=== PATIENT | male | born 1990 | race Caucasian/White ===

== ENCOUNTER 2018-02-15 18:16 | Inpatient (IN) | payer OTHER, SELFPAY ==
--- NOTE | 2018-02-15 19:39 | RAD REPORT ---
EXAM DESCRIPTION: Gretchen Anderson (2 Views)02/15/2018 7:19 pm CLINICAL HISTORY: Chest pain COMPARISON: None FINDINGS: Large right tension pneumothorax is present. The lungs appear clear of acute infiltrate. T he heart is normal size IMPRESSION: Large right tension pneumothorax. Exam was discussed with Olena in the emergency room 7:30 p.m. February 15, 2018
[2018-02-15 19:43] LABS: ALT/SGPT 24 U/L (12-78); AST/SGOT 14 U/L (15-37); Albumin 4.6 g/dL (3.4-5.0); Alkaline Phosphatase 68 U/L (45-117); BUN Blood Urea Nitrogen 13 mg/dL (7-18); Bicarbonate 24 mmol/L (21-32); Bilirubin Direct 0.1 mg/dL (0-0.2); Bilirubin Total 0.5 mg/dL (0.2-1.0); Glucose Level 93 mg/dL (74-106); Lipase 122 U/L (73-393); Protime INR 0.97; Sodium Level 139 mmol/L (136-145); Troponin (Emerg Dept Use Only) < 0.02 ng/mL (0.0-0.045)
[2018-02-15 19:45] LABS: Absolute Lymphocytes (CBC) 2.9 K/uL (0.7-4.9); Absolute Monocytes 0.9 K/uL (0.1-1.3); Absolute Neutrophil 9.4 K/uL (1.8-8.0); Basophils % 0.3 % (0-1.3); Eosinophils % 1.3 % (0-4.4); Hematocrit 50.3 % (39.6-49.0); Lymphocytes % 21.4 % (15.3-44.8); MCH 29.9 pg (27.0-35.0); MCV 90.9 fL (80-100); MPV 7.8 fL (7.6-11.3); Monocytes % 6.7 % (3.3-12.3); RBC Red Blood Cell Count 5.53 M/uL (4.33-5.43)
[2018-02-15] MEDS ORDERED: MIDAZOLAM HCL 2 MG/2 ML INJ ONE (19:52)
[2018-02-15] MEDS ORDERED: FENTANYL CITR 100 MCG/2 ML ONE ×2 (19:52→20:40)
--- NOTE | 2018-02-15 21:02 | RAD REPORT ---
EXAM DESCRIPTION: MERChest Single View02/15/2018 8:49 pm CLINICAL HISTORY: Chest pain COMPARISON: February 15, 2018 FINDINGS: A right chest tube has been inserted. The tip overlies the upper right hemithorax. Right l armand has re-expanded with minimal residual pneumothorax seen
--- NOTE | 2018-02-15 21:32 | ER ---
Nurse's Notes [facility] Name: David Anthony Age: 27 yrs Sex: Male : 1990 Arrival Date: 02/15/2018 Time: 18:19 Bed 2 Private MD: None, None Diagnosis: Right side chest pain;acute right side pneumothorax Presentation: 02/15 18:22 Presenting complaint: Patient states: continuous midsternal chest pain with right above sv elbow numbness since 1430. Worse with movement, c/o non-productive cough and pain with cough. Transition of care: patient was not received from another setting of care. Onset of symptoms was February 15, 2018 at 14:30. Care prior to arrival: None. 18:22 Method Of Arrival: Ambulatory sv 18:22 Acuity: RALPH 3 sv 19:19 Risk Assessment: Do you want to hurt yourself or someone else? Patient reports no mg2 desire to harm self or others. Initial Sepsis Screen: Does the patient meet any 2 criteria? No. Patient's initial sepsis screen is negative. Does the patient have a suspected source of infection? No. Patient's initial sepsis screen is negative. Triage Assessment: 18:22 General: Appears in no apparent distress. uncomfortable, Behavior is calm, cooperative, sv appropriate for age. Pain: Complains of pain in mid-sternal area Pain radiates to anterior aspect of left shoulder and left bicep Pain currently is 6 out of 10 on a pain scale. Neuro: Level of Consciousness is awake, alert, obeys commands, Oriented to person, place, time, situation, Moves all extremities. Full function Gait is steady, Speech is normal. Respiratory: Respiratory effort is even, unlabored, Respiratory pattern is regular, symmetrical. Historical: - Allergies: 18:34 No Known Allergies; sv - Home Meds: 18:34 None [Active]; sv - PMHx: 18:34 None; sv - PSHx: 18:34 Ureter; sv - Immunization history:: Flu vaccine is not up to date. - Social history:: Smoking status: Patient uses tobacco products, vape, Patient uses alcohol, on a daily basis. admits to "couple of beers" a day. - Ebola Screening: : No symptoms or risks identified at this time. - Family history:: not pertinent. - Hospitalizations: : No recent hospitalization is reported. Screenin:18 Abuse screen: Denies threats or abuse. Denies injuries from another. Nutritional mg2 screening: No deficits noted. Tuberculosis screening: No symptoms or risk factors identified. Fall Risk IV access (20 points). Assessment: 19:17 General: Appears in no apparent distress. comfortable, Behavior is calm, cooperative. mg2 Pain: Complains of pain in chest Pain began suddenly. Pain: Pain does not radiate. Pain currently is 6 out of 10 on a pain scale. Quality of pain is described as aching. Neuro: Level of Consciousness is awake, alert, obeys commands, Oriented to person, place, time, situation. Cardiovascular: Capillary refill < 3 seconds Patient's skin is warm and dry. Respiratory: Airway is patent Respiratory effort is even, unlabored, Respiratory pattern is regular, symmetrical. GI: No signs and/or symptoms were reported involving the gastrointestinal system. : No signs and/or symptoms were reported regarding the genitourinary system. EENT: No deficits noted. Derm: Skin is intact, is healthy with good turgor, Skin is pink, warm \\T\\ dry. normal. Musculoskeletal: No signs and/or symptoms reported regarding the musculoskeletal system. 22:10 Reassessment: Patient appears in no apparent distress at this time. Patient and/or tl2 family updated on plan of care and expected duration. Pain level reassessed. Patient is alert, oriented x 3, equal unlabored respirations, skin warm/dry/pink. Pt reports pain is returning, MD notified, new orders see MAR Patient states feeling better. 23:00 Reassessment: Patient appears in no apparent distress at this time. Patient and/or tl2 family updated on plan of care and expected duration. Pain level reassessed. Patient is alert, oriented x 3, equal unlabored respirations, skin warm/dry/pink. 02/16 00:00 Reassessment: Patient appears in no apparent distress at this time. Patient and/or tl2 family updated on plan of care and expected duration. Pain level reassessed. Patient is alert, oriented x 3, equal unlabored respirations, skin warm/dry/pink. 01:00 Reassessment: Patient appears in no apparent distress at this time. Patient and/or tl2 family updated on plan of care and expected duration. Pain level reassessed. Patient is alert, oriented x 3, equal unlabored respirations, skin warm/dry/pink. 02:26 Reassessment: Patient appears in no apparent distress at this time. Patient and/or tl2 family updated on plan of care and expected duration. Pain level reassessed. Patient is alert, oriented x 3, equal unlabored respirations, skin warm/dry/pink. Pt stable and ready for transport to floor. Vital Signs: 02/15 18:22 BP 156 / 98; Pulse 92; Resp 16; Temp 97.6; Pulse Ox 99% ; Weight 65.77 kg; Height 5 ft. sv 10 in. (177.80 cm); Pain 6/10; 20:00 BP 138 / 90; Pulse 91; Resp 18; Pulse Ox 100% on Non-rebreather mask; tl2 20:30 BP 126 / 95; Pulse 87; Resp 20; Pulse Ox 100% on Non-rebreather mask; tl2 21:09 BP 127 / 83; Pulse 85; Resp 19; Pulse Ox 100% on 2 lpm NC; tl2 21:46 BP 126 / 82; Pulse 80; Resp 18; Pulse Ox 100% on R/A; tl2 22:28 BP 130 / 74; Pulse 77; Resp 15; Pulse Ox 97% on R/A; tl2 11 00:05 BP 132 / 74; Pulse 75; Resp 14; Pulse Ox 99% on R/A; tl2 02:26 BP 131 / 79; Pulse 84; Resp 14; Pulse Ox 99% on 2 lpm NC; tl2 02/15 18:22 Body Mass Index 20.81 (65.77 kg, 177.80 cm) sv ED Course: 02/15 18:19 Patient arrived in ED. mr 18:20 None, None is Private Physician. mr 18:22 Arm band placed on Patient placed in an exam room, on a stretcher, on pulse oximetry. sv 18:28 Julius Payan MD is Attending Physician. wa 18:33 Triage completed. sv 18:36 EKG done, by ED staff, reviewed by Julius Payan MD. dh3 18:45 Michael Kumar, SOFIA is Primary Nurse. mg2 19:19 Chest Pa And Lat (2 Views) XRAY In Process Unspecified. EDMS 19:19 No provider procedures requiring assistance completed. Inserted saline lock: 20 gauge mg2 in left antecubital area, using aseptic technique. Blood collected. Patient maintains SpO2 saturation greater than 95% on room air. 19:19 Patient has correct armband on for positive identification. switchboard troubleshooter on. Pulse mg2 ox on. NIBP on. 20:18 Assist provider with chest tube insertion with 16 Fr. in right lateral Tray was set up. tl2 Attached to pleur-e-Baroc Pub. Chest tube inserted by Julius Payan MD Placement verified by CXR, return of air, Dressed with Vaseline gauze, foam tape, 4X4s, Patient tolerated well. 20:48 Chest Single View XRAY In Process Unspecified. EDMS 21:31 Navjot Schaeffer MD is Hospitalizing Provider. dc 02/16 02:26 Patient admitted, IV remains in place. tl2 Administered Medications: 02/15 20:00 Drug: fentaNYL (PF) 100 mcg Route: IVP; Site: left antecubital; tl2 20:30 Follow up: Response: No adverse reaction; Pain is unchanged, physician notified tl2 20:16 Drug: Versed 5 mg Route: IVP; Site: left antecubital; tl2 20:30 Follow up: Response: No adverse reaction; Pain is decreased tl2 20:34 Drug: fentaNYL (PF) 100 mcg Route: IVP; Site: left antecubital; tl2 21:00 Follow up: Response: No adverse reaction; Pain is decreased tl2 22:24 Drug: Dilaudid 1 mg Route: IVP; Site: left antecubital; tl2 23:00 Follow up: Response: No adverse reaction; Pain is decreased tl2 22:24 Drug: Zofran 4 mg Route: IVP; Site: left antecubital; tl2 23:00 Follow up: Response: No adverse reaction tl2 02/16 01:01 Drug: fentaNYL (PF) 50 mcg Route: IVP; Site: left antecubital; tl2 01:30 Follow up: Response: No adverse reaction; Pain is decreased tl2 Outcome: 02/15 21:32 Decision to Hospitalize by Provider. dc 02/16 02:25 Admitted to Med/surg accompanied by tech, family with patient, via stretcher, room 207, tl2 with chart, Report called to SOFIA Zhang Condition: stable Discharge instructions given to patient, family, Instructed on the need for admit, Demonstrated understanding of 02:31 Patient left the ED. tl2 Signatures: Dispatcher [employer] EDMercedes Bennett, RN RN [facility] mr Micki Bearden RN RN tl2 Angela Ferrari [facility] Julius Payan MD MD wa Gardose, Michele, RN RN mg2
--- NOTE | 2018-02-15 21:32 | EDPHYS ---
Physician Documentation [facility] Name: David Anthony Age: 27 yrs Sex: Male : 1990 Arrival Date: 02/15/2018 Time: 18:19 Bed 2 Private MD: None, None ED Physician Julius Payan HPI: 02/15 21:16 This 27 yrs old Male presents to ER via Ambulatory with complaints of Chest wa Pain, Numbness Of Arm. 21:16 The patient or guardian reports chest pain that is located primarily in the right side. wa The pain radiates to the right arm. Associated signs and symptoms: Pertinent positives: pain on inspiration. worse with walking around. pain also radiates into neck. denies nausea, sweating or dizziness. 21:17 The chest pain is described as sharp. Duration: The patient or guardian reports a wa single episode, that is still ongoing, and worsening. Modifying factors: The symptoms are alleviated by nothing. the symptoms are aggravated by movement, walking. Severity of pain: At its worst the pain was moderate in the emergency department the pain is actually worse. The patient has experienced a previous episode, approximately 2 years ago, resolved spontaneously. The patient has not recently seen a physician. states he vapes but was not smoking at the time pain began. . Historical: - Allergies: 18:34 No Known Allergies; sv - Home Meds: 18:34 None [Active]; sv - PMHx: 18:34 None; sv - PSHx: 18:34 Ureter; sv - Immunization history:: Flu vaccine is not up to date. - Social history:: Smoking status: Patient uses tobacco products, vape, Patient uses alcohol, on a daily basis. admits to "couple of beers" a day. - Ebola Screening: : No symptoms or risks identified at this time. - Family history:: not pertinent. - Hospitalizations: : No recent hospitalization is reported. ROS: 21:21 Constitutional: Negative for fever, chills, and weight loss, Eyes: Negative for injury, wa pain, redness, and discharge, ENT: Negative for injury, pain, and discharge, Neck: Negative for injury, pain, and swelling, Abdomen/GI: Negative for abdominal pain, nausea, vomiting, diarrhea, and constipation, Back: Negative for injury and pain, MS/Extremity: Negative for injury and deformity, Skin: Negative for injury, rash, and discoloration, Neuro: Negative for headache, weakness, numbness, tingling, and seizure, Psych: Negative for depression, anxiety, suicide ideation, homicidal ideation, and hallucinations. 21:21 Cardiovascular: Positive for chest pain, Negative for edema, orthopnea, palpitations, paroxysmal nocturnal dyspnea. 21:21 Respiratory: Positive for painful respirations, Negative for cough. Exam: 21:24 Constitutional: This is a well developed, well nourished patient who is awake, alert, wa and in no acute distress. Head/Face: Normocephalic, atraumatic. Eyes: Pupils equal round and reactive to light, extra-ocular motions intact. Lids and lashes normal. Conjunctiva and sclera are non-icteric and not injected. Cornea within normal limits. Periorbital areas with no swelling, redness, or edema. ENT: Nares patent. No nasal discharge, no septal abnormalities noted. Tympanic membranes are normal and external auditory canals are clear. Oropharynx with no redness, swelling, or masses, exudates, or evidence of obstruction, uvula midline. Mucous membranes moist. Neck: Trachea midline, no thyromegaly or masses palpated, and no cervical lymphadenopathy. Supple, full range of motion without nuchal rigidity, or vertebral point tenderness. No Meningismus. Chest/axilla: Normal chest wall appearance and motion. Nontender with no deformity. No lesions are appreciated. Cardiovascular: Regular rate and rhythm with a normal S1 and S2. No gallops, murmurs, or rubs. Normal PMI, no JVD. No pulse deficits. Respiratory: Lungs have equal breath sounds bilaterally, clear to auscultation and percussion. No rales, rhonchi or wheezes noted. No increased work of breathing, no retractions or nasal flaring. Abdomen/GI: Soft, non-tender, with normal bowel sounds. No distension or tympany. No guarding or rebound. No evidence of tenderness throughout. Back: No spinal tenderness. No costovertebral tenderness. Full range of motion. Skin: Warm, dry with normal turgor. Normal color with no rashes, no lesions, and no evidence of cellulitis. MS/ Extremity: Pulses equal, no cyanosis. Neurovascular intact. Full, normal range of motion. Neuro: Awake and alert, GCS 15, oriented to person, place, time, and situation. Cranial nerves II-XII grossly intact. Motor strength 5/5 in all extremities. Sensory grossly intact. Cerebellar exam normal. Normal gait. Vital Signs: 18:22 BP 156 / 98; Pulse 92; Resp 16; Temp 97.6; Pulse Ox 99% ; Weight 65.77 kg; Height 5 ft. sv 10 in. (177.80 cm); Pain 6/10; 20:00 BP 138 / 90; Pulse 91; Resp 18; Pulse Ox 100% on Non-rebreather mask; tl2 20:30 BP 126 / 95; Pulse 87; Resp 20; Pulse Ox 100% on Non-rebreather mask; tl2 21:09 BP 127 / 83; Pulse 85; Resp 19; Pulse Ox 100% on 2 lpm NC; tl2 21:46 BP 126 / 82; Pulse 80; Resp 18; Pulse Ox 100% on R/A; tl2 22:28 BP 130 / 74; Pulse 77; Resp 15; Pulse Ox 97% on R/A; tl2 02/16 00:05 BP 132 / 74; Pulse 75; Resp 14; Pulse Ox 99% on R/A; tl2 02:26 BP 131 / 79; Pulse 84; Resp 14; Pulse Ox 99% on 2 lpm NC; tl2 02/15 18:22 Body Mass Index 20.81 (65.77 kg, 177.80 cm) sv Procedures: 02/15 21:28 Chest tube insertion: the site was prepped in sterile fashion, chlorhexadine, Tube wa size: a 20 libyan chest tube was inserted, introduced in right in the mid-axillary, to pleur-e-vac, dressed with vaseline gauze, silk tape, 4x4s, the patient tolerated the procedure pain control and anxiolysis achieved with a bolus of fentanyl and versed. MDM: 18:28 Patient medically screened. wa 21:24 Differential diagnosis: acute pericarditis, coronary artery disease chest wall pain, wa costochondritis, gastritis, pancreatitis, pericarditis, pleurisy, pneumonia, pneumothorax, pulmonary embolus, thoracic aortic disection, unstable angina. 21:25 Data reviewed: vital signs, nurses notes, lab test result(s), EKG, radiologic studies. wa Test interpretation: by ED physician or midlevel provider: labs noted only for leukocytosis. nml troponin. nml lipase. CXR: large Right side pneumothorax pushing trachea mildly to the left. 21:26 Test interpretation: by ED physician or midlevel provider: EKG: HR 82. Rightward axis. wa otherwise nml EKG. d-dimer nml. . Response to treatment: the patient's symptoms have markedly improved after treatment. Physician consultation: Navjot Schaeffer MD. Admission orders: after a detailed discussion of the patient's condition and case, the admit orders are written by me. 21:30 Test interpretation: by ED physician or midlevel provider: post-chest tube chest x-ray: nv R lung re-expansion noted. mild residual pneumothorax. ED course: accepted by Dr. Schaeffer for admit. advised CT chest in AM to r/o bleb. 02/15 18:58 Order name: Basic Metabolic Panel nv 02/15 18:58 Order name: CBC with Diff; Complete Time: 21:24 nv 02/15 18:58 Order name: LFT's nv 02/15 18:58 Order name: PT-INR; Complete Time: 21:25 nv 02/15 18:58 Order name: Troponin (emerg Dept Use Only); Complete Time: 21:25 nv 02/15 18:58 Order name: D-Dimer; Complete Time: 21:25 nv 02/15 18:58 Order name: Chest Pa And Lat (2 Views) XRAY nv 02/15 18:58 Order name: Lipase; Complete Time: 21:25 nv 02/15 18:59 Order name: Basic Metabolic Panel; Complete Time: 21:24 [facility] 02/15 18:59 Order name: Liver (Hepatic) Function; Complete Time: 21:24 [facility] 02/15 23:14 Order name: Basic Metabolic Panel [facility] 02/15 23:14 Order name: Basic Metabolic Panel [facility] 02/15 23:14 Order name: CBC with Automated Diff [facility] 02/15 23:14 Order name: CBC with Automated Diff [facility] 02/15 18:31 Order name: EKG; Complete Time: 18:31 sv 02/15 18:31 Order name: EKG - Nurse/Tech; Complete Time: 18:36 sv 02/15 18:58 Order name: Cardiac monitoring; Complete Time: 19:14 nv 02/15 18:58 Order name: IV Saline Lock; Complete Time: 19:14 nv 02/15 18:58 Order name: Labs collected and sent; Complete Time: 19:14 nv 02/15 18:58 Order name: O2 Sat Monitoring; Complete Time: 19:14 nv 02/15 20:38 Order name: Chest Single View XRAY; Complete Time: 21:12 nv 02/15 23:14 Order name: Thorax W/ Con EDMS 02/15 23:14 Order name: Regular EDMS Administered Medications: 20:00 Drug: fentaNYL (PF) 100 mcg Route: IVP; Site: left antecubital; tl2 20:30 Follow up: Response: No adverse reaction; Pain is unchanged, physician notified tl2 20:16 Drug: Versed 5 mg Route: IVP; Site: left antecubital; tl2 20:30 Follow up: Response: No adverse reaction; Pain is decreased tl2 20:34 Drug: fentaNYL (PF) 100 mcg Route: IVP; Site: left antecubital; tl2 21:00 Follow up: Response: No adverse reaction; Pain is decreased tl2 22:24 Drug: Dilaudid 1 mg Route: IVP; Site: left antecubital; tl2 23:00 Follow up: Response: No adverse reaction; Pain is decreased tl2 22:24 Drug: Zofran 4 mg Route: IVP; Site: left antecubital; tl2 23:00 Follow up: Response: No adverse reaction tl2 02/16 01:01 Drug: fentaNYL (PF) 50 mcg Route: IVP; Site: left antecubital; tl2 01:30 Follow up: Response: No adverse reaction; Pain is decreased tl2 Disposition: 02/15/18 21:32 Hospitalization ordered by Navjot Schaeffer for Inpatient Admission. Preliminary diagnosis are Right side chest pain, acute right side pneumothorax. - Bed requested for Telemetry/MedSurg (Inpatient). - Status is Inpatient Admission. tl2 - Condition is Stable. - Problem is new. - Symptoms have improved. UTI on Admission? No Signatures: Dispatcher [employer] EDChina Mitchell RN RN kl Verde, Stephanie, RN RN sv Knox, Taylor, RN RN tl2 Julius Payan MD MD nv Corrections: (The following items were deleted from the chart) 00:42 02/15 21:32 Hospitalization Ordered by Navjot Schaeffer MD for Inpatient Admission. kl Preliminary diagnosis is Right side chest pain; acute right side pneumothorax. Bed requested for Telemetry/MedSurg (Inpatient). Status is Inpatient Admission. Condition is Stable. Problem is new. Symptoms have improved. UTI on Admission? No. wa 02/16 02:31 00:42 02/15/2018 21:32 Hospitalization Ordered by Navjot Schaeffer MD for Inpatient tl2 Admission. Preliminary diagnosis is Right side chest pain; acute right side pneumothorax. Bed requested for Telemetry/MedSurg (Inpatient). Status is Inpatient Admission. Condition is Stable. Problem is new. Symptoms have improved. UTI on Admission? No. kl
[2018-02-15] MEDS ORDERED: ONDANSETRON 4 MG/2 ML VIAL ONE (22:18)
[2018-02-15] MEDS ORDERED: HYDROMORPHONE HCL 1 MG/ML INJ ONE (22:18)
[2018-02-15] MEDS ORDERED: ACETAMINOPHEN 500 MG TAB PO PRN (23:08)
[2018-02-15] MEDS ORDERED: ONDANSETRON 4 MG/2 ML VIAL IV PRN (23:08)
[2018-02-16] MEDS: FENTANYL CITR 100 MCG/2 ML IV PRN ×3 (04:30→17:01)
[2018-02-16 06:09] LABS: Absolute Lymphocytes (CBC) 1.8 K/uL (0.7-4.9); Absolute Monocytes 0.9 K/uL (0.1-1.3); Absolute Neutrophil 10.1 K/uL (1.8-8.0); Basophils % 0.1 % (0-1.3); Eosinophils % 0.2 % (0-4.4); Hematocrit 43.9 % (39.6-49.0); Lymphocytes % 14.2 % (15.3-44.8); MCH 30.7 pg (27.0-35.0); MPV 7.8 fL (7.6-11.3); Monocytes % 7.1 % (3.3-12.3); RBC Red Blood Cell Count 4.93 M/uL (4.33-5.43)
[2018-02-16 06:36] LABS: BUN Blood Urea Nitrogen 12 mg/dL (7-18); Bicarbonate 27 mmol/L (21-32); Glucose Level 98 mg/dL (74-106); Potassium 4.3 mmol/L (3.5-5.1); Sodium Level 136 mmol/L (136-145)
--- NOTE | 2018-02-16 06:37 | EKG ---
Test Date: 2018-02-15 Test Time: 18:35:40 Sandblast Operator: DONNA MEASUREMENT RESULTS: Intervals: Rate: 82 NH: 150 QRSD: 94 QT: 332 QTc: 387 [place]: P: 88 NH: 150 QRS: 91 T: 88 INTERPRETIVE STATEMENTS: Normal sinus rhythm Rightward axis Borderline ECG No previous ECG available for comparison Electronically Signed On 02-16-18 06:36:12 CDT by Sameer Nolen
[2018-02-16] MEDS ORDERED: INFLUENZA VACCINE (for 3y+) 0.5 ML DOSE IMVAC ONE (08:00)
[2018-02-16] MEDS: HYDROCODONE/APAP 5/325 MG TAB PO PRN ×3 (08:51→19:49)
--- NOTE | 2018-02-16 09:58 | RAD REPORT ---
EXAM DESCRIPTION: CT - Thorax W/ Con CLINICAL HISTORY: Chest pain right pneumothorax COMPARISON: Chest Single View dated 02/15/2018; Chest Pa And Lat (2 Views) dated 02/15/2018 FINDINGS: A large right-sided pneumothorax is present. A right chest tube is in place within the ple ural space directed cephalad. Atelectasis is noted of the right lower lobe. No cardiomediastinal shif t is seen to the left. The left lung is clear. No axillary, mediastinal or hilar adenopathy. No concerning bony finding. No gross upper abdominal finding. All CT scans are performed using dose optimization technique as appropriate and may include automated exposure control or mA/KV adjustment according to patient size. IMPRESSION: Right-sided chest tube is in place directed cephalad in the right pleural space. There c ontinues to be a large right pneumothorax present, however cardiomediastinal shift to the left is not seen. Findings were discussed Dr. Schaeffer 9:53 a.m. 02/16/2018 by telephone.
--- NOTE | 2018-02-16 13:02 | P.DS ---
Admission Date: 02/15/18 Discharge Date: 02/16/18 Disposition: TRANSFER TO [facility] Discharge Condition: GOOD Reason for Admission: Spontaneous pneumothorax Consultations: Surgery-Dr. Schaeffer Procedures: Chest tube placement Medical problem list: Right-sided chest pain secondary to spontaneous right-sided large pneumothorax status post chest tube placement with persistent air leak Tobacco use Alcohol use Brief History of Present Illness: 27-year-old male present emergency room with right-sided chest pain. Patient found to have a spontaneous pneumothorax. Chest tube was placed. Patient admitted for further evaluation and monitoring. Vital signs stable. Patient afebrile. Respirations unremarkable. CT scan: COMPARISON: Chest Single View dated 02/15/2018; Chest Pa And Lat (2 Views) dated 02/15/2018 FINDINGS: A large right-sided pneumothorax is present. A right chest tube is in place within the pleural space directed cephalad. Atelectasis is noted of the right lower lobe. No cardiomediastinal shift is seen to the left. The left lung is clear. No axillary, mediastinal or hilar adenopathy. No concerning bony finding. No gross upper abdominal finding. All CT scans are performed using dose optimization technique as appropriate and may include automated exposure control or mA/KV adjustment according to patient size. IMPRESSION: Right-sided chest tube is in place directed cephalad in the right pleural space. There continues to be a large right pneumothorax present, however cardiomediastinal shift to the left is not seen. Medical history: Unremarkable Surgical history: Left-sided ureteral surgery due to blockage Family history: Mother with history of pancreatic cancer Father with history of colon cancer Tobacco history: Patient currently vapes Alcohol history: Patient drinks socially Caffeine history: Regular use Social history: Patient has a fiancee. He has no children. He works construction. Hospital Course: Patient found to have right-sided spontaneous pneumothorax. Chest tube was placed. Patient evaluated and monitored by surgery. Patient continued to have large right pneumothorax with persistent air leak. Surgery recommended the patient to be transferred for thoracic surgery evaluation for possible VATS procedure. Case discussed at length with thoracic surgery. Patient accepted. Patient will be transferred to [facility] for further evaluation and treatment. Review of systems: HEENT: Unremarkable Neck: Unremarkable Pulmonary: As above Cardiac: As above GI: No nausea, vomiting, diarrhea or constipation. No abdominal pain noted. Urological: Unremarkable Neurological: Unremarkable PSYC: Unremarkable Vital Signs/Physical Exam: Temp Pulse Resp BP Pulse Ox 97.9 F 72 18 130/62 98 02/16/18 12:00 02/16/18 12:00 02/16/18 12:00 02/16/18 12:00 02/16/18 12:00 General: Alert, In no apparent distress, Oriented x3, Cooperative HEENT: Atraumatic, Mucous membr. moist/pink Neck: Supple Respiratory: Other (Right chest tube in place) Cardiovascular: Normal pulses, Regular rate/rhythm Gastrointestinal: Normal bowel sounds, Soft and benign, Non-distended, No tenderness, No masses, No rebound, No guarding Musculoskeletal: No erythema, No tenderness, No warmth Integumentary: No tenderness/swelling, No erythema, No warmth, No cyanosis Neurological: Normal speech, Normal strength at 5/5 x4 extr, Normal tone, Normal affect Laboratory Data at Discharge: WBC 12.9 K/uL (4.3-10.9) H 02/16/18 05:17 Hgb 15.1 g/dL (13.6-17.9) 02/16/18 05:17 Hct 43.9 % (39.6-49.0) 02/16/18 05:17 Plt Count 211 K/uL (152-406) 02/16/18 05:17 PT 11.4 SECONDS (9.5-12.5) 02/15/18 19:15 INR 0.97 02/15/18 19:15 Sodium 136 mmol/L (136-145) 02/16/18 05:17 Potassium 4.3 mmol/L (3.5-5.1) 02/16/18 05:17 BUN 12 mg/dL (7-18) 02/16/18 05:17 Creatinine 1.00 mg/dL (0.55-1.3) 02/16/18 05:17 Glucose 98 mg/dL (74-106) 02/16/18 05:17 Total Bilirubin 0.5 mg/dL (0.2-1.0) 02/15/18 19:15 AST 14 U/L (15-37) L 02/15/18 19:15 ALT 24 U/L (12-78) 02/15/18 19:15 Alkaline Phosphatase 68 U/L (45-117) 02/15/18 19:15 Lipase 122 U/L (73-393) 02/15/18 19:15 Home Medications: NK [No Home Meds] 02/16/18 Patient Discharge Instructions: Patient to be transferred to [facility] for thoracic surgery evaluation and possible VATS procedure. Patient with spontaneous right-sided large pneumothorax status post chest tube placement complicated with persistent air leak. Diet: AHA Activity: Fall precautions Time spent managing pt's care (in minutes): 55
--- NOTE | 2018-02-16 17:43 | CON ---
History Of Present Illness: This is the case of a 27 years old patient, comes to the ER complaining of chest discomfort. The patient was initially seen by the ER physician who diagnosed him with a pne umothorax and put a chest tube on the patient. When the pneumothorax resolved, then he decided to ad holden the patient to the hospitalist and a surgical consult for evaluation and chest tube removal event uajosee. The patient says that he had an episode like that about 2 years ago and resolved on its own. The patient is still smoking. He has no primary doctor around and other than that, he does not comp george of any symptoms. Allergies: NONE. Medications: None. Medical Problems: Recurrent pneumothorax. Past Surgical History: Some urological surgery, does not have details. Social Habits: The patient chews tobacco, uses vape and drinks beers every now and then. Review of Systems: Constitutional: Denies any fever or chills. Denies any trauma. Denies traveling out of the country . Denies any high altitude. Respiratory: Denies any coughing or sneezing. Currently denies any shortness of breath. Gastrointestinal: Denies any nausea, vomiting, or abdominal pain. Extremities: Denies any weakness. Physical Examination: General: The patient is awake and alert. HEENT: Pupils are equal and reactive, anicteric. Neck: Supple. Chest: Clear. Bilateral breath sounds, although diminished on the right side. The chest tube is in place. It was examined from the water seal device up to the chest. Dressings were changed. Since there is still persistent pneumothorax and we did not see any leakage in the connections, chest tube is all the way in with no side ports outside of the chest cavity. The tube looks viable, intact with fluid on it tidaling with air bubbles in the collection chamber consistent with an air leak. The pa tient has bilateral breath sounds. No bleeding. No crepitus. Abdomen: Soft and depressible. Nontender, nondistended. Bowel sounds positive. Extremities: Good capillary refill. Neuro: Cranial nerves 2 through 12 grossly within normal limits. Rectal: Deferred. Diagnostic Data: CAT scan of the chest was reviewed with the radiologist, we were present when they were getting the films reading. We have a chest tube, it looks to be in place with no kink, no side ports outside, there is still large pneumothorax present and that is consistent with air leak we see on the chest tube area collection chamber. Some atelectasis is noted already on the right side. No cardiomediastinal shift to the left and the left lung is clear. Assessment: It is a 27 years old patient, with recurrent pneumothorax. A chest tube was placed by [facility] staff last night, looks with no leakage, but still have persistent pneumothorax with an air gabino k seen on the chamber. I do not see the hospitalist admission here as was described to me, so I will initiate a transfer myself to Thoracic Surgery. I explained to the person that there is a large air leak combined with recurrent may need evaluation by thoracic surgeon for either surgery or any other indicated procedure to trying to stop the leaks from that area. They are fully agree with that. Luis Antonio verdin also want to go to [facility] to the Thoracic Surgery, so I explained to supervisors and staff on the floor to initiate a transfer to a thoracic surgeon when he needs that higher level of care. In the meantime, we are going to keep the chest tube there, we are going to continue with serial chest exami nations. Right now, he has no shortness of breath and the chest tube is tidaling. We are going to d iscuss the area with the thoracic surgeon too in case the patient needs an additional chest tube or e nestor repositioning of it, either thing is necessary, but I believe transfer should be done as soon as possible. EZIO/ENRIQUE Voice ID: [id number] Report ID: [id number]
== END 2018-02-16 23:26 | disposition short-term general hospital (02) | DRG 201 ==
LOC: ER 18:16 → ERHOLD 23:57 → OBSVTOIN 23:57 → 2ND 02-16 01:58
PROVIDERS: ADMIT Surgery; ATTEND Surgery
PROC: 0W9930Z Drainage of Right Pleural Cavity with Drainage Device, Percutaneous Approach (ICD-10-PCS; principal; 2018-02-15)
DX: J93.83 Other pneumothorax (principal); J93.82 Other air leak; F17.210 Nicotine dependence, cigarettes, uncomplicated; Z23 Encounter for immunization
CPT/HCPCS: 36415; 71045; 71046; 71260; 80048; 80076; 83690; 84484; 85025; 85379; 85610; 93005; 96374; 96375; 99291; G0008; G0378; J1170; J2250; J2405; J3010; Q2035; Q9967

== ENCOUNTER 2018-04-10 19:21 | Emergency (ER) | payer SELFPAY ==
--- OUTSIDE RECORDS SUMMARY | 2018-04-10 19:25 | XMS REPORT | Clinical Summary ---
:1990 Author Organization [facility] Address [address] [place] [address] Care Team Providers Name Role Phone Pcp, No Primary Care Provider Unavailable Allergies No Known Allergies Medications Medication Sig Dispensed Refills Start Date End Date Status gabapentin Take 1 capsule 90 capsule 11 02/24/2018 Active (NEURONTIN) 300 MG (300 mg total) capsule by mouth 3 (three) times daily. traMADol (ULTRAM) 50 Take 2 tablets 30 tablet 0 02/24/2018 03/06/2018 mg tablet (100 mg total) by mouth every 6 (six) hours as needed for up to 10 days. Max Daily Amount: 400 mg Active Problems Problem Noted Date Pneumothorax, right 02/17/2018 Encounters Date Type Specialty Care Team Description 02/20/2018 Anesthesia Event Marilin Gomez MD 02/20/2018 Surgery Mariusz Leo ROBOTIC THORACOSCOPY MD [place] (VATS),WEDGE RESECTION W/ OR W/OUT LYMPHADENECTOMY 02/17/2018 - Hospital Encounter Intensive Care Macho Pintoli, Pneumothorax , right; 02/24/2018 Acute respiratory insufficiency, postoperative 02/17/2018 Travel after 04/09/2017 Family History Medical History Relation Name Comments Arthritis Father Cancer Father Alcohol abuse Mother Cancer Mother Asthma Sister Relation Name Status Comments Father Mother Sister Social History Tobacco Use Types Packs/Day Years Used Date Current Some Day Smoker 1 Quit: 12/18/2017 Smokeless Tobacco: Current User Tobacco Cessation: Ready to Quit: Yes; Counseling Given: No Comments: currently vaping to transition from cigarettes Alcohol Use Drinks/Week oz/Week Comments Yes 14 Cans of beer 8.4 Sex Assigned at Date Recorded Not on file Job Start Date Occupation Industry Not on file Not on file Not on file Travel History Travel Start Travel End No recent travel history available. Last Filed Vital Signs Vital Sign Reading Time Taken Blood Pressure 136/75 02/24/2018 10:20 AM [facility]ER Pulse 81 02/24/2018 10:20 AM [facility]ER Temperature 36.7 C (98 F) 02/24/2018 7:57 AM [facility] M[facility]ER Respiratory Rate 18 02/24/2018 10:20 AM [facility]ER Oxygen Saturation 96% 02/24/2018 10:20 AM [facility]ER Inhaled Oxygen Concentration 40% 02/21/2018 8:00 AM [facility]ER Weight 61.3 kg (135 lb 2.3 oz) 02/24/2018 10:00 AM [facility] Height 177.8 cm (5' 10") 02/17/2018 12:42 AM CDT Body Mass Index 19.39 02/24/2018 10:00 AM [facility]ER Plan of Treatment Not on file Procedures Procedure Name Priority Date/Time Associated Diagnosis Comments RHYTHM STRIP - SCAN 03/01/2018 9:10 AM [facility]ER XR CHEST 1 VIEW Routine 02/24/2018 10:32 Results for this PORTABLE/BEDSIDE AM [facility] procedure are in the results section. CBC W/PLT COUNT & Routine 02/24/2018 4:52 Results for this AUTO DIFFERENTIAL AM [facility] procedure are in the results section. MAGNESIUM Routine 02/24/2018 4:52 Results for this AM [facility] procedure are in the results section. CBC W/PLT COUNT & Routine 02/24/2018 4:52 Results for this AUTO DIFFERENTIAL AM [facility] procedure are in the results section. BASIC METABOLIC Routine 02/24/2018 4:52 Results for this PANEL (7) AM [facility] procedure are in the results section. XR CHEST 1 VIEW Routine 02/24/2018 3:15 Results for this PORTABLE/BEDSIDE AM [facility] procedure are in the results section. XR CHEST 1 VIEW Routine 02/23/2018 12:48 Results for this PORTABLE/BEDSIDE PM [facility] procedure are in the results section. CBC W/PLT COUNT & Routine 02/23/2018 3:39 Results for this AUTO DIFFERENTIAL AM [facility] procedure are in the results section. MAGNESIUM Routine 02/23/2018 3:39 Results for this AM [facility] procedure are in the results section. CBC W/PLT COUNT & Routine 02/23/2018 3:39 Results for this AUTO DIFFERENTIAL AM [facility] procedure are in the results section. BASIC METABOLIC Routine 02/23/2018 3:39 Results for this PANEL (7) AM [facility] procedure are in the results section. XR CHEST 1 VIEW Routine 02/23/2018 3:17 Results for this PORTABLE/BEDSIDE AM [facility] procedure are in the results section. XR CHEST 1 VIEW Routine 02/22/2018 5:40 Results for this PORTABLE/BEDSIDE AM [facility] procedure are in the results section. CBC W/PLT COUNT & Routine 02/22/2018 4:18 Results for this AUTO DIFFERENTIAL AM [facility] procedure are in the results section. MAGNESIUM Routine 02/22/2018 4:18 Results for this AM [facility] procedure are in the results section. CBC W/PLT COUNT & Routine 02/22/2018 4:18 Results for this AUTO DIFFERENTIAL AM [facility] procedure are in the results section. BASIC METABOLIC Routine 02/22/2018 4:18 Results for this PANEL (7) AM [facility] procedure are in the results section. TRANSFUSION SERVICE 02/21/2018 6:02 REPORT - SCAN PM [facility] XR CHEST 1 VIEW Routine 02/21/2018 3:41 Results for this PORTABLE/BEDSIDE AM [facility] procedure are in the results section. CBC W/PLT COUNT & Routine 02/21/2018 3:18 Results for this AUTO DIFFERENTIAL AM [facility] procedure are in the results section. BLOOD GAS, ARTERIAL Routine 02/21/2018 3:18 Results for this AM [facility] procedure are in the results section. MAGNESIUM Routine 02/21/2018 3:18 Results for this AM [facility] procedure are in the results section. BASIC METABOLIC Routine 02/21/2018 3:18 Results for this PANEL (7) AM [facility] procedure are in the results section. CBC W/PLT COUNT & Routine 02/21/2018 3:18 Results for this AUTO DIFFERENTIAL AM [facility] procedure are in the results section. MAGNESIUM STAT 02/20/2018 10:08 Results for this PM [facility] procedure are in the results section. BASIC METABOLIC STAT 02/20/2018 10:08 Results for this PANEL (7) PM [facility] procedure are in the results section. CBC (HEMOGRAM ONLY) STAT 02/20/2018 10:08 Results for this PM [facility] procedure are in the results section. XR CHEST 1 VIEW Routine 02/20/2018 9:36 Results for this PORTABLE/BEDSIDE PM [facility] procedure are in the results section. TISSUE EXAM AP Routine 02/20/2018 7:45 Results for this PM [facility] procedure are in the results section. HGB/HCT (H&H) - STAT STAT 02/20/2018 7:15 Results for this LAB PM [facility] procedure are in the results section. GLUCOSE-STAT LAB STAT 02/20/2018 7:15 Results for this PM [facility] procedure are in the results section. POTASSIUM-STAT LAB STAT 02/20/2018 7:15 Results for this PM [facility] procedure are in the results section. SODIUM NA-STAT LAB STAT 02/20/2018 7:15 Results for this PM [facility] procedure are in the results section. BLOOD GAS, ARTERIAL STAT 02/20/2018 7:15 Results for this PM [facility] procedure are in the results section. CALCIUM, IONIZED STAT 02/20/2018 7:15 Results for this PM [facility] procedure are in the results section. RRL CRITICAL LABS STAT 02/20/2018 7:15 Results for this (ABG,NA,K,H&H,GLUCOS PM [facility] procedure are in E) the results section. THORACOTOMY,PLEURECT 02/20/2018 5:00 Spontaneous PIERRE PM [facility]ER pneumothorax Special Needs REQ TF ROBOTIC THORACOSCOPY 02/20/2018 5:00 PM [facility]ER Spontaneous pneumothorax (VATS),WEDGE RESECTION W/ OR W/OUT LYMPHADENECTOMY Special Needs REQ TF CBC W/PLT COUNT & AUTO Routine 02/20/2018 3:29 AM [facility]UR MIXER Results for this DIFFERENTIAL procedure are in the results section. TYPE AND SCREEN, AUTOMATED Routine 02/20/2018 3:29 AM [facility]ER PT/APTT Routine 02/20/2018 3:29 AM [facility]ER MAGNESIUM Routine 02/20/2018 3:29 AM [facility]ER BASIC METABOLIC PANEL (7) Routine 02/20/2018 3:29 AM [facility]ER CBC W/PLT COUNT & AUTO Routine 02/20/2018 3:29 AM [facility]ER Results for this DIFFERENTIAL procedure are in the results section. XR CHEST 1 VIEW Routine 02/20/2018 3:22 AM [facility]ER Results for this PORTABLE/BEDSIDE procedure are in the results section. XR CHEST 1 VIEW Routine 02/19/2018 2:21 AM [facility]ER Results for this PORTABLE/BEDSIDE procedure are in the results section. POCT-GLUCOSE METER Routine 02/18/2018 10:31 PM CDT TRANSFUSION SERVICE REPORT - 02/18/2018 5:51 PM CDT SCAN CBC W/PLT COUNT & AUTO Routine 02/18/2018 4:23 AM CDT Results for this DIFFERENTIAL procedure are in the results section. MAGNESIUM Routine 02/18/2018 4:23 AM CDT BASIC METABOLIC PANEL (7) Routine 02/18/2018 4:23 AM CDT CBC W/PLT COUNT & AUTO Routine 02/18/2018 4:23 AM CDT Results for this DIFFERENTIAL procedure are in the results section. XR CHEST 1 VIEW Routine 02/18/2018 4:11 AM CDT Results for this PORTABLE/BEDSIDE procedure are in the results section. XR CHEST 1 VIEW Routine 02/17/2018 12:29 PM CDT Results for this PORTABLE/BEDSIDE procedure are in the results section. CBC W/PLT COUNT & AUTO Routine 02/17/2018 4:21 AM CDT Results for this DIFFERENTIAL procedure are in the results section. TYPE AND SCREEN, AUTOMATED Routine 02/17/2018 4:21 AM CDT PT/APTT Routine 02/17/2018 4:21 AM CDT CBC W/PLT COUNT & AUTO Routine 02/17/2018 4:21 AM CDT Results for this DIFFERENTIAL procedure are in the results section. COMPREHENSIVE METABOLIC Routine 02/17/2018 4:21 AM CDT Results for this PANEL procedure are in the results section. MAGNESIUM Routine 02/17/2018 4:21 AM CDT ECG 12-LEAD Routine 02/17/2018 2:29 AM CDT XR CHEST 1 VIEW STAT 02/17/2018 1:13 AM CDT Results for this PORTABLE/BEDSIDE procedure are in the results section. after 04/09/2017 Results RHYTHM STRIP - SCAN (03/01/2018 9:10 AM F[facility]ER) Narrative Performed At XR chest 1 view portable / bedside (02/24/2018 10:32 AM [facility] MIXER)Only the most recent of12 resultswithin the time period is included. Narrative Performed At FINAL REPORT [facility] CLINICAL HISTORY: CT removal TECHNIQUE: 1 view of the chest. COMPARISON: 02/24/2018 IMPRESSION: The right chest tube has been removed. There is a small residual pneumothorax with air tracking along the previous chest tube tract. Patchy right lower lung opacities are unchanged with a small right pleural effusion. The cardiomediastinal silhouette is within normal limits for size. Signed: Chrissie Oewns MD Report Verified Date/Time:02/24/2018 12:27:55 Reading Location: [facility] Radiology Reading Room Procedure Note Interface, External Ris In - 02/24/2018 12:30 PM [facility]ER FINAL REPORT CLINICAL HISTORY: CT removal TECHNIQUE: 1 view of the chest. COMPARISON: 02/24/2018 IMPRESSION: The right chest tube has been removed. There is a small residual pneumothorax with air tracking along the previous chest tube tract. Patchy right lower lung opacities are unchanged with a small right pleural effusion. The cardiomediastinal silhouette is within normal limits for size. Signed: Chrissie Owens MD Report Verified Date/Time: 02/24/2018 12:27:55 Reading Location: [facility] Radiology Reading Room Performing Organization Address City/State/Zipcode Phone Number [facility] CBC with platelet count + automated diff (02/24/2018 4:52 AM FUR MIXER)Only the most recent of7 resultswithin the time period is included. WBC 6.7 3.5 - 10.5 K/L [facility] RBC 4.41 (L) 4.63 - 6.08 M/L [facility] Hemoglobin 13.2 (L) 13.7 - 17.5 GM/DL [facility] Hematocrit 40.2 40.1 - 51.0 % [facility] MCV 91.2 79.0 - 92.2 fL [facility] MCH 29.9 25.7 - 32.2 pg [facility] MCHC 32.8 32.3 - 36.5 GM/DL [facility] RDW 11.9 11.6 - 14.4 % [facility] Platelets 203 150 - 450 K/CU MM [facility] MPV 8.5 (L) 9.4 - 12.4 fL [facility] nRBC 0 0 - 0 /100 WBC [facility] % Neutros 59 % [facility] % Lymphs 23 % [facility] % Monos 11 % [facility] % Eos 6 % [facility] % Baso 1 % [facility] # Neutros 3.96 1.78 - 5.38 K/L [facility] # Lymphs 1.51 1.32 - 3.57 K/L [facility] # Monos 0.75 0.30 - 0.82 K/L [facility] # Eos 0.42 0.04 - 0.54 K/L [facility] # Baso 0.04 0.01 - 0.08 K/L [facility] Immature Granulocytes-Relative 0 0 - 1 % [facility] Specimen Blood - Arm, Left Performing Organization Address City/[facility]/Zipcode Phone Number [address] [address] [phone] CENTER Magnesium (02/24/2018 4:52 AM [facility]ER)Only the most recent of8 resultswithin the time period is included. Magnesium 2.2 1.6 - 2.6 mg/dL [facility] Specimen Blood - Arm, Left Performing Organization Address City/[facility]/Zipcode Phone Number [address] [address] CENTER Basic Metabolic Panel (02/24/2018 4:52 AM F[facility] M[facility]ER)Only the most recent of7 resultswithin the time period is included. Sodium 140 136 - 145 meq/L [facility] Potassium 4.2 3.5 - 5.1 meq/L [facility] Chloride 104 98 - 107 meq/L [facility] CO2 29 22 - 29 meq/L [facility] BUN 10 7 - 21 mg/dL [facility] Creatinine 0.91 0.57 - 1.25 mg/dL [facility] Glucose 94 70 - 105 mg/dL [facility] Calcium 9.9 8.4 - 10.2 mg/dL [facility] EGFR 102Comment: ESTIMATED GFR IS mL/min/1.73 sq m [facility] NOT ACCURATE CREATININE [facility] CLEARANCE IN PREDICTING GLOMERULAR FILTRATION RATE. ESTIMATED GFR IS NOT APPLICABLE FOR DIALYSIS PATIENTS. Specimen Blood - Arm, Left Performing Organization Address City/[facility] Cent[facility]ode Phone Number [place] [phone] [place] [address] CENTER TRANSFUSION SERVICE REPORT - SCAN (02/21/2018 6:02 PM [facility] MIXER)Only the most recent of2 resultswithin the time period is included. Narrative Performed At Blood gas, arterial (02/21/2018 3:18 AM FUR M[facility]ER)Only the most recent of2 resultswithin the time period is included. pH, Arterial 7.38 7.35 - 7.45 [facility] pCO2, Arterial 47 (H) 35 - 45 mmHg [facility] pO2, Arterial 240 (H) 80 - 90 mmHg [facility] O2 Sat, Arterial 99.5 (H) 96.0 - 97.0 % [facility] HCO3, Arterial 27 21 - 29 mmol/L [facility] Base Excess, Arterial 1.6 -2.0 - 3.0 mmol/L [facility] Patient Temperature 37.0 C [facility] FIO2 50.0 % [facility] Specimen Blood, Arterial Performing Organization Address City/State/Zipcode Phone Number [facility] [address] [place] [address] [phone] CENTER CBC (Hemogram only) (02/20/2018 10:08 PM FUR MIXER) WBC 17.4 (H) 3.5 - 10.5 K/L [facility] RBC 4.91 4.63 - 6.08 M/L [facility] Hemoglobin 14.8 13.7 - 17.5 GM/DL [facility] Hematocrit 43.9 40.1 - 51.0 % [facility] MCV 89.4 79.0 - 92.2 fL [facility] MCH 30.1 25.7 - 32.2 pg [facility] MCHC 33.7 32.3 - 36.5 GM/DL [facility] RDW 11.9 11.6 - 14.4 % [facility] Platelets 202 150 - 450 K/CU MM [facility] MPV 8.6 (L) 9.4 - 12.4 fL [facility] Specimen Blood Performing Organization Address City/State/Zipcode Phone Number [facility] [address] [place], [place] [phone] CENTER Tissue Exam (02/20/2018 7:45 PM FUR MIXER) Case Report Surgical Pathology Report Case: [id number] [facility] Authorizing Provider:Mariusz Leo MD Collected: 02/20/2018 1945 [facility] [address]: 02/21/2018 0910 Pathologist: Krishna Burnham MD Specimens: A) - Lung, Right Upper Lobe, Right Upper Lobe/Lung B) - Lung, Right Middle Lobe, Right Middle Lobe/ Lung C) - Pleural, Right, Right Pleural Space/Lung DIAGNOSIS A. LUNG, RIGHT UPPER LOBE, WEDGE RESECTION: [facility] - EMPHYSEMATOUS AND ATELECTATIC CHANGES WITH FOCAL PLEURAL THICKENING, HEMOSIDERIN [facility] DEPOSITION AND REACTIVE CHANGES B. LUNG, RIGHT MIDDLE LOBE, WEDGE RESECTION: - FIBRINOUS EXUDATE,INFLAMMATORY CELLS WITH REACTIVE MESOTHELIAL CELLS, AND GRANULATION TISSUE, COMPATIBLE WITH FIBRINOUS PELURITIS - EMPHYSEMATOUS AND ATELECTATIC CHANGES WITH FOCAL PLEURAL THICKENING C. PLEURA, RIGHT, PLEURECTOMY: - PLEURA WITH CHRONIC INFLAMMATION AND REACTIVE CHANGES Signing Pathologist Direct Phone Line: [phone] CPT Code(s) 88686 X 2, [id number] [facility] CLINICAL HISTORY Spontaneous pneumothorax [facility] SPECIMEN SOURCE A. Right upper lobe of lung; [facility] B. Right middle lobe of lung; [facility] C. Right pleural space lung GROSS DESCRIPTION Specimen A: Received in formalin labeled "lung, right upper lobe" is a 9.0 x 3.0 x 1.5 cm surgically stapled wedge of pulmonary parenchyma. [facility] The pleural surface is purple-menard to red, dusky and wrinkled. Sectioning reveals dark red homogeneous consolidated pulmonary parenchyma throughout. No discrete masses are identified. The specimen is entirely submitted in cassettes A1-A9. Specimen B: Received fresh labeled "lung, right middle lobe" is a 3.5 x 1.5 x 0.5 cm surgically stapled wedge of pulmonary parenchyma. The pleural surface is purple-menard to red, dusky, wrinkled and disrupted. Sectioning reveals dark red homogeneous consolidated pulmonary parenchyma throughout. No discrete masses are identified. The specimen is entirely submitted in cassettes B1-B3. Specimen C: Received fresh labeled "pleura, right", description "right pleural space" is a 6.3 x 5.2 x 0.8 cm aggregate of pink-menard to kinsey-white, rubbery, wrinkled fibromembranous soft tissue. Sectioning reveals no discrete masses. Home Visit Field Care Manager sections are submitted in cassettes C1-C5. DB/pl MICROSCOPIC DESCRIPTION Performed. [facility] Specimen Tissue - Lung, Right Upper Lobe Performing Organization Address City/State/Zipcode Phone Number [facility] [address] [place] [address] CENTER Potassium-Stat Lab (02/20/2018 7:15 PM FUR MIXER) Potassium 3.8 3.6 - 5.5 meq/L [facility] Specimen Blood, Arterial Performing Organization Address [facility]ori Phone Number [address] [address] [place] Sodium Na-Stat Lab (02/20/2018 7:15 PM FUR MIXER) Sodium 138 135 - 148 meq/L [facility] Specimen Blood, Arterial Performing Organization Address City/[facility] Phone Number [address] [address] [place] Glucose-Stat Lab (02/20/2018 7:15 PM FUR MIXER) Glucose 118 (H) 70 - 110 mg/dL [facility] Specimen Blood, Arterial Performing Organization Address [facility] Phone Number [address] [address] [phone] [place] HGB/HCT (H&H)-Stat Lab (02/20/2018 7:15 PM FUR MIXER) Hemoglobin 15.1 13.0 - 16.8 g/dL [facility] Hematocrit 44.0 40.0 - 50.0 % [facility] Specimen Blood, Arterial Performing Organization Address [facility] Phone Number [address] [address] [place] Calcium, Ionized (02/20/2018 7:15 PM FUR MIXER) Calcium, Ion 1.18 1.12 - 1.27 mmol/L [facility] pH, Blood 7.45 [facility] Specimen Blood Performing Organization Address [facility] Phone Number [address] [address] CENTER Type and screen, automated (02/20/2018 3:29 AM FUR MIXER)Only the most recent of2 resultswithin the time period is included. ABO/RH AUTOMATED (BEAKER) A NEGATIVE [facility] Ab Scrn NEGATIVE [facility] Specimen Blood - Arm, Right Performing Organization Address [facility] Centercode Phone Number [address] [address] [phone] PT/aPTT (02/20/2018 3:29 AM FUR MIXER)Only the most recent of2 resultswithin the time period is included. Protime 13.4 11.7 - 14.7 seconds [facility] INR 1.0 <=5.9 [facility] PTT 34.1 22.5 - 36.0 seconds [facility] Specimen Blood - Arm, Right Narrative Performed At RECOMMENDED COUMADIN/WARFARIN INR THERAPY [facility] RANGES STANDARD DOSE: 2.0 - 3.0 Includes: PROPHYLAXIS for venous thrombosis, systemic embolization; TREATMENT for venous thrombosis and/or pulmonary embolus. HIGH RISK: Target INR is 2.5-3.5 for patients with mechanical heart valves. Performing Organization Address [facility] Centercode Phone Number [address] [address] [phone] [place] POC-Glucose meter (02/18/2018 10:31 PM CDT) POC-Glucose Meter 81Comment: TESTED AT 70 - 110 mg/dL [facility] [address] [place] [id number] Specimen Blood Performing Organization Address City/[facility]/Zipcode Phone Number [address] [address] [place] Comprehensive metabolic panel (02/17/2018 4:21 AM CDT) Protein, Total 7.0 6.0 - 8.3 gm/dL [facility] Albumin 4.4 3.5 - 5.0 g/dL [facility] Alkaline Phosphatase 58 40 - 150 U/L [facility] Total Bilirubin 0.9 0.2 - 1.2 mg/dL [facility] Sodium 136 136 - 145 meq/L [facility] Potassium 4.0 3.5 - 5.1 meq/L [facility] Chloride 101 98 - 107 meq/L [facility] CO2 28 22 - 29 meq/L [facility] BUN 8 7 - 21 mg/dL [facility] Creatinine 0.99 0.57 - 1.25 mg/dL [facility] [facility] Glucose 101 70 - 105 mg/dL [facility] Calcium 9.6 8.4 - 10.2 mg/dL [facility] AST 16 5 - 34 U/L [facility] ALT 11 6 - 55 U/L [facility] EGFR 92Comment: ESTIMATED GFR mL/min/1.73 sq m [facility] ACCUR[facility] CREATININE CLEARANCE IN PREDICTING GLOMERULAR FILTRATION RATE. ESTIMATED GFR IS NOT APPLICABLE FOR DIALYSIS PATIENTS. Specimen Blood - Arm, Right Performing Organization Address City/State/Zipcode Phone Number [facility] [address] [place] [address] CENTER Electrocardiogram, 12-lead (02/17/2018 2:29 AM CDT) Narrative Performed At Ventricular Rate 79 BPM [facility] Atrial Rate 79 BPM P-R Interval 160 ms QRS Duration 82 ms Q-T Interval 332 ms QTC Calculation(Bazett) 380 ms P Urich 19 degrees R Urich 67 degrees T Urich 40 degrees Normal sinus rhythm Normal ECG No previous ECGs available Confirmed by MD MIKKI, IAN Pardo ([id number]) on 02/17/2018 6:18:25 AM Procedure Note Interface, External Ris In - 02/17/2018 6:18 AM CDT Ventricular Rate 79 BPM Atrial Rate 79 BPM P-R Interval 160 ms QRS Duration 82 ms Q-T Interval 332 ms QTC Calculation(Bazett) 380 ms P Urich 19 degrees R Urich 67 degrees T Urich 40 degrees Normal sinus rhythm Normal ECG No previous ECGs available Confirmed by MD MIKKI, IAN Pardo ([id number]) on 02/17/2018 6:18:25 AM Performing Organization Address City/State/Zipcode Phone Number GE MUSE after 04/09/2017 Advance Directives For more information, please contact:[address] [phone] Code Status Date Activated Date Inactivated Comments Full Code 02/20/2018 9:15 PM This code status was determined by: Patient Full Code 02/17/2018 1:29 AM 02/20/2018 9:15 PM This code status was determined by: Patient
--- OUTSIDE RECORDS SUMMARY | 2018-04-10 19:25 | XMS REPORT ---
:1990 [facility] [address] [place] [address] Care Team Providers Name Role Phone CODI CHAPARRO Unavailable Unavailable Problems This patient has no known problems. Allergies, Adverse Reactions, Alerts This patient has no known allergies or adverse reactions. Medications This patient has no known medications. Results Test Description Test Time Test Comments Text Results Atomic Results Result Comments TISSUE EXAM 2018-03-01 Surgical Pathology Report 11:50:00 Case: [id number] Authorizing Provider: Mariusz Leo MD Collected: 02/20/20181944 Ordering Location: [address] Received: 02/21/2018 0910 Pathologist: Krishna Burnham MD Specimens: A) - Lung, Right Upper Lobe, Right Upper Lobe/Lung B) - Lung, Right Middle Lobe, Right Middle Lobe/Lung C) - Pleural, Right, Right Pleural Space/Lung A. LUNG, RIGHT UPPER LOBE, WEDGE RESECTION: - EMPHYSEMATOUS AND ATELECTATIC CHANGES WITH FOCAL PLEURAL THICKENING, HEMOSIDERIN DEPOSITION AND REACTIVE CHANGESB. LUNG, RIGHT MIDDLE LOBE, WEDGE RESECTION: - FIBRINOUS EXUDATE,INFLAMMATORY CELLS WITH REACTIVE MESOTHELIAL CELLS, AND GRANULATION TISSUE, COMPATIBLE WITH FIBRINOUS PELURITIS - EMPHYSEMATOUS AND ATELECTATIC CHANGES WITH FOCAL PLEURAL THICKENINGC. PLEURA, RIGHT, PLEURECTOMY: - PLEURA WITH CHRONIC INFLAMMATION AND REACTIVE CHANGES Signing Pathologist Direct Phone Line: [phone] signed by Krishna Burnham MD on 03/01/2018 at 11:50 [id number] X 2, [id number] pneumothoraxA. Right upper lobe of lung; B. Right middle lobe of lung; C. Right pleural space lungSpecimen A: Received in formalin labeled "lung, right [...] soft tissue. Sectioning reveals no discrete masses. Graphic Artist sections are submitted in cassettes C1-C5. DB/plPerformed. RAD, CHEST, 1 2018-02-24 Reason for exam:->CT FINAL REPORT PATIENT ID: VIEW, NON 12:27:00 removalShould this [id number] CLINICAL HISTORY: CT DEPT be performed at the removal TECHNIQUE: 1 view of the bedside?->Yes chest. COMPARISON: 02/24/2018 IMPRESSION: The right chest tube has been removed. There is a small residual pneumothorax with air tracking along the previous chest tube tract. Patchy right lower lung opacities are unchanged with a small right pleural effusion. The cardiomediastinal silhouette is within normal limits for size. Signed: Chrissie Diggs MDReport Verified Date/Time: 02/24/2018 12:27:55 Reading Location: [facility] Radiology Reading Room ESIUM 2018-02-24 05:35:00 Test Item Value Reference Range Comments MAGNESIUM (BEAKER) (test epgy=440) 2.2 mg/dL 1.6-2.6 BASIC METABOLIC [id number] 05:35:00 Test Item Value Reference Range Comments SODIUM (BEAKER) (test 140 meq/L 136-145 wqdy=076) POTASSIUM (BEAKER) (test 4.2 meq/L 3.5-5.1 amji=626) CHLORIDE (BEAKER) (test 104 meq/L 98-107 wenc=020) CO2 (BEAKER) (test 29 meq/L 22-29 mlii=094) BLOOD UREA NITROGEN 10 mg/dL 7-21 (BEAKER) (test detn=334) CREATININE (BEAKER) (test 0.91 mg/dL 0.57-1.25 vzfb=334) GLUCOSE RANDOM (BEAKER) 94 mg/dL 70-105 (test vorh=354) CALCIUM (BEAKER) (test 9.9 mg/dL 8.4-10.2 zorj=316) EGFR (BEAKER) (test 102 mL/min/1.73 sq m ESTIMATED GFR IS NOT aqua=1158) ACCURATE CREATININE CLEARANCE IN PREDICTING GLOMERULAR FILTRATION RATE. ESTIMATED GFR IS NOT APPLICABLE FOR DIALYSIS PATIENTS. CBC W/PLT COUNT & AUTO [id number] 05:34:00 Test Item Value Reference Range Comments WHITE BLOOD CELL COUNT (BEAKER) (test mkqr=946) 6.7 K/ L 3.5-10.5 RED BLOOD CELL COUNT (BEAKER) (test ofje=999) 4.41 M/ L 4.63-6.08 HEMOGLOBIN (BEAKER) (test ilfe=479) 13.2 GM/DL 13.7-17.5 HEMATOCRIT (BEAKER) (test cawp=739) 40.2 % 40.1-51.0 MEAN CORPUSCULAR VOLUME (BEAKER) (test xact=924) 91.2 fL 79.0-92.2 MEAN CORPUSCULAR HEMOGLOBIN (BEAKER) (test 29.9 pg 25.7-32.2 laaz=253) MEAN CORPUSCULAR HEMOGLOBIN CONC (BEAKER) (test 32.8 GM/DL 32.3-36.5 sovm=461) RED CELL DISTRIBUTION WIDTH (BEAKER) (test 11.9 % 11.6-14.4 jypd=611) PLATELET COUNT (BEAKER) (test rgtz=774) 203 K/CU MM 150-450 MEAN PLATELET VOLUME (BEAKER) (test rmzh=090) 8.5 fL 9.4-12.4 NUCLEATED RED BLOOD CELLS (BEAKER) (test 0 /100 WBC 0-0 twcy=224) NEUTROPHILS RELATIVE PERCENT (BEAKER) (test 59 % ahtp=457) LYMPHOCYTES RELATIVE PERCENT (BEAKER) (test 23 % hfdy=032) MONOCYTES RELATIVE PERCENT (BEAKER) (test 11 % guml=368) EOSINOPHILS RELATIVE PERCENT (BEAKER) (test 6 % vhzm=831) BASOPHILS RELATIVE PERCENT (BEAKER) (test 1 % doii=699) NEUTROPHILS ABSOLUTE COUNT (BEAKER) (test 3.96 K/ L 1.78-5.38 jbhe=661) LYMPHOCYTES ABSOLUTE COUNT (BEAKER) (test 1.51 K/ L 1.32-3.57 ejtl=249) MONOCYTES ABSOLUTE COUNT (BEAKER) (test 0.75 K/ L 0.30-0.82 vprx=316) EOSINOPHILS ABSOLUTE COUNT (BEAKER) (test 0.42 K/ L 0.04-0.54 glyj=308) BASOPHILS ABSOLUTE COUNT (BEAKER) (test 0.04 K/ L 0.01-0.08 fsjy=026) IMMATURE GRANULOCYTES-RELATIVE PERCENT (BEAKER) 0 % 0-1 (test fuca=9357) RAD, CHEST, 1 VIEW, NON [id number] 04:23:00Reason for exam:->s/p right lung resection and pleurectomy; evaluate for pneumothoraxShould this be performed at the bedside?->YesFINAL REPORT EXAMINATION : AP PORTABLE CHEST RADIOGRAPH CLINICAL INDICATION: Right lung resection, pleurectomy IMPRESSION: Compared with 02/23/2018 The right-sided chest tube is stable in position. The right lung opacities and the right pleural abnormality are grossly stable. Subtle radiolucency is again noted at the right lung apex suggesting a tiny stable pneumothorax. The heart size is normal. Mediastinal contours are sharp and stable. No definite evidence of new lung consolidation. Continued imaging surveillance recommended. Signed: Laura Gee MDReport Verified Date/Time: 02/24/2018 04:23:00 Reading Location: [address] Reading Room Electronically signed by: LAURA GEE M.D. on 12/2017 04:23 AMRAD, CHEST, 1 VIEW, NON [id number] 13:34:00Reason for exam:- >CT removalShould this be performed at the bedside?->YesFINAL REPORT TECHNIQUE: Frontal chest radiograph dated 02/23/2018. CLINICAL HISTORY: CT removal COMPARISON STUDY: Chest radiograph performed earlier the same day IMPRESSION:One of two right-sided chest tubes as been removed. Minimal scarring/atelectasis is seen in the lateral upper right lung. No pleural effusion or pneumothorax. Cardiomediastinal silhouette is normal in size.No pulmonary edema. No fracture. Signed: Angelique Anderson MDReport Verified Date/Time: 02/23/2018 13:34:08 Reading Location: [facility] Radiology Reading Room Electronically signed by: ANGELIQUE ANDERSON MD on 2017 01:34 [id number] 04:19:00 Test Item Value Reference Range Comments MAGNESIUM (BEAKER) (test ogyy=846) 2.2 mg/dL 1.6-2.6 BASIC METABOLIC [id number] 04:19:00 Test Item Value Reference Range Comments SODIUM (BEAKER) (test 138 meq/L 136-145 wsxt=601) POTASSIUM (BEAKER) (test 3.9 meq/L 3.5-5.1 rxlc=586) CHLORIDE (BEAKER) (test 102 meq/L 98-107 hdei=382) CO2 (BEAKER) (test 29 meq/L 22-29 ikno=084) BLOOD UREA NITROGEN 10 mg/dL 7-21 (BEAKER) (test fqla=171) CREATININE (BEAKER) (test 0.85 mg/dL 0.57-1.25 qfyz=163) GLUCOSE RANDOM (BEAKER) 93 mg/dL 70-105 (test gyve=161) CALCIUM (BEAKER) (test 9.6 mg/dL 8.4-10.2 stbj=319) EGFR (BEAKER) (test 110 mL/min/1.73 sq m ESTIMATED GFR IS NOT duew=3656) ACCURATE CREATININE CLEARANCE IN PREDICTING GLOMERULAR FILTRATION RATE. ESTIMATED GFR IS NOT APPLICABLE FOR DIALYSIS PATIENTS. CBC W/PLT COUNT & AUTO [id number] 04:10:00 Test Item Value Reference Range Comments WHITE BLOOD CELL COUNT (BEAKER) (test bqyd=754) 7.8 K/ L 3.5-10.5 RED BLOOD CELL COUNT (BEAKER) (test ygdb=450) 4.30 M/ L 4.63-6.08 HEMOGLOBIN (BEAKER) (test ymvy=553) 13.0 GM/DL 13.7-17.5 HEMATOCRIT (BEAKER) (test tdtf=217) 41.5 % 40.1-51.0 MEAN CORPUSCULAR VOLUME (BEAKER) (test nzes=847) 96.5 fL 79.0-92.2 MEAN CORPUSCULAR HEMOGLOBIN (BEAKER) (test 30.2 pg 25.7-32.2 cjqd=905) MEAN CORPUSCULAR HEMOGLOBIN CONC (BEAKER) (test 31.3 GM/DL 32.3-36.5 etkr=731) RED CELL DISTRIBUTION WIDTH (BEAKER) (test 11.8 % 11.6-14.4 adzx=919) PLATELET COUNT (BEAKER) (test rles=681) 148 K/CU MM 150-450 MEAN PLATELET VOLUME (BEAKER) (test deyz=537) 9.0 fL 9.4-12.4 NUCLEATED RED BLOOD CELLS (BEAKER) (test 0 /100 WBC 0-0 iwso=322) NEUTROPHILS RELATIVE PERCENT (BEAKER) (test 63 % bqgs=877) LYMPHOCYTES RELATIVE PERCENT (BEAKER) (test 21 % bagk=387) MONOCYTES RELATIVE PERCENT (BEAKER) (test 11 % iqrh=034) EOSINOPHILS RELATIVE PERCENT (BEAKER) (test 4 % gqtx=060) BASOPHILS RELATIVE PERCENT (BEAKER) (test 1 % pjjs=728) NEUTROPHILS ABSOLUTE COUNT (BEAKER) (test 4.88 K/ L 1.78-5.38 kfoh=063) LYMPHOCYTES ABSOLUTE COUNT (BEAKER) (test 1.64 K/ L 1.32-3.57 wmsi=327) MONOCYTES ABSOLUTE COUNT (BEAKER) (test 0.86 K/ L 0.30-0.82 sraz=449) EOSINOPHILS ABSOLUTE COUNT (BEAKER) (test 0.31 K/ L 0.04-0.54 jtar=394) BASOPHILS ABSOLUTE COUNT (BEAKER) (test 0.06 K/ L 0.01-0.08 ospl=207) IMMATURE GRANULOCYTES-RELATIVE PERCENT (BEAKER) 0 % 0-1 (test ppyj=6235) RAD, CHEST, 1 VIEW, NON [id number] 03:48:00Reason for exam:->s/p right lung resection and pleurectomy; evaluate for pneumothoraxShould this be performed at the bedside?->YesFINAL REPORT EXAMINATION : AP PORTABLE CHEST RADIOGRAPH CLINICAL INDICATION: Right lung resection, chest tubes IMPRESSION: Compared with 02/22/2018 Right-sided chest tubes are again noted, grossly stable in position. Trace gas in the right pleural space is similar to previous and may reflect incomplete expansion of the right lung versus a small stable pneumothorax. Thin curvilinear parenchymal lung opacities are again noted. Atelectasis favored. No evidence of new lung consolidation or pulmonary edema. Cardiomediastinal contours are unchanged. In summary, no significant interval change. Signed: Laura Geeeport Verified Date/Time: 02/23/2018 03:48:15 Reading Location: [address] Reading Room RAD, CHEST, 1 VIEW, NON [id number] 09:05:00Reason for exam:->s/p right lung resection and pleurectomy; evaluate for pneumothoraxShould this be performed at the bedside?->YesFINAL REPORT CLINICAL HISTORY: s/p right lung resection and pleurectomy; evaluate for pneumothorax TECHNIQUE: 1 view of the chest. COMPARISON: 02/21/2018 IMPRESSION: The ETT has been removed. Two right chest tubes remain. The small right pneumothorax is unchanged versus minimallyincreased. Right lateral lung chain sutures and pleural thickening are again seen. The heart is not enlarged. Signed: Chrissie Diggs MDReport Verified Date/Time: 02/22/2018 09:05:33 Reading Location: [facility] Radiology Reading Room 09 :05 [id number] 05:32:00 Test Item Value Reference Range Comments MAGNESIUM (BEAKER) (test oyoi=853) 2.1 mg/dL 1.6-2.6 BASIC METABOLIC [id number] 05:32:00 Test Item Value Reference Range Comments SODIUM (BEAKER) (test 136 meq/L 136-145 dzer=959) POTASSIUM (BEAKER) (test 4.2 meq/L 3.5-5.1 utqw=525) CHLORIDE (BEAKER) (test 104 meq/L 98-107 mmiw=076) CO2 (BEAKER) (test 26 meq/L 22-29 pbya=357) BLOOD UREA NITROGEN 9 mg/dL 7-21 (BEAKER) (test gich=416) CREATININE (BEAKER) (test 0.82 mg/dL 0.57-1.25 arrd=337) GLUCOSE RANDOM (BEAKER) 82 mg/dL 70-105 (test jdfd=483) CALCIUM (BEAKER) (test 9.3 mg/dL 8.4-10.2 xoem=217) EGFR (BEAKER) (test 114 mL/min/1.73 sq m ESTIMATED GFR IS NOT npsx=2321) ACCURATE CREATININE CLEARANCE IN PREDICTING GLOMERULAR FILTRATION RATE. ESTIMATED GFR IS NOT APPLICABLE FOR DIALYSIS PATIENTS. CBC W/PLT COUNT & AUTO [id number] 05:06:00 Test Item Value Reference Range Comments WHITE BLOOD CELL COUNT (BEAKER) (test oemx=943) 9.9 K/ L 3.5-10.5 RED BLOOD CELL COUNT (BEAKER) (test sega=954) 4.33 M/ L 4.63-6.08 HEMOGLOBIN (BEAKER) (test xwdw=717) 13.2 GM/DL 13.7-17.5 HEMATOCRIT (BEAKER) (test vndh=550) 40.0 % 40.1-51.0 MEAN CORPUSCULAR VOLUME (BEAKER) (test tgru=039) 92.4 fL 79.0-92.2 MEAN CORPUSCULAR HEMOGLOBIN (BEAKER) (test 30.5 pg 25.7-32.2 hdmq=624) MEAN CORPUSCULAR HEMOGLOBIN CONC (BEAKER) (test 33.0 GM/DL 32.3-36.5 iqjh=338) RED CELL DISTRIBUTION WIDTH (BEAKER) (test 12.0 % 11.6-14.4 hqlr=576) PLATELET COUNT (BEAKER) (test yzgl=789) 177 K/CU MM 150-450 MEAN PLATELET VOLUME (BEAKER) (test onhi=158) 9.0 fL 9.4-12.4 NUCLEATED RED BLOOD CELLS (BEAKER) (test 0 /100 WBC 0-0 duvv=191) NEUTROPHILS RELATIVE PERCENT (BEAKER) (test 70 % hwwl=149) LYMPHOCYTES RELATIVE PERCENT (BEAKER) (test 15 % wwjz=709) MONOCYTES RELATIVE PERCENT (BEAKER) (test 11 % rseb=325) EOSINOPHILS RELATIVE PERCENT (BEAKER) (test 3 % kqtu=556) BASOPHILS RELATIVE PERCENT (BEAKER) (test 1 % eavm=983) NEUTROPHILS ABSOLUTE COUNT (BEAKER) (test 6.93 K/ L 1.78-5.38 fpav=295) LYMPHOCYTES ABSOLUTE COUNT (BEAKER) (test 1.51 K/ L 1.32-3.57 necc=551) MONOCYTES ABSOLUTE COUNT (BEAKER) (test 1.08 K/ L 0.30-0.82 lusk=300) EOSINOPHILS ABSOLUTE COUNT (BEAKER) (test 0.33 K/ L 0.04-0.54 bebl=347) BASOPHILS ABSOLUTE COUNT (BEAKER) (test 0.05 K/ L 0.01-0.08 qmxk=629) IMMATURE GRANULOCYTES-RELATIVE PERCENT (BEAKER) 0 % 0-1 (test hbwm=4588) BLOOD GAS, [id number] 04:28:00 Test Item Value Reference Range Comments PH ARTERIAL (BEAKER) (test qpbd=930) 7.38 7.35-7.45 PCO2 ARTERIAL (BEAKER) (test csek=265) 47 mmHg 35-45 PO2 ARTERIAL (BEAKER) (test ypho=463) 240 mmHg 80-90 O2 SATURATION ARTERIAL (BEAKER) (test oroy=991) 99.5 % 96.0-97.0 HCO3 ARTERIAL (BEAKER) (test xrhd=530) 27 mmol/L 21-29 BASE EXCESS ARTERIAL (BEAKER) (test ikbv=590) 1.6 mmol/L -2.0-3.0 PATIENT TEMPERATURE (BEAKER) (test ovgn=7487) 37.0 C FIO2 (BEAKER) (test csbk=8631) 50.0 % [id number] 04:08:00 Test Item Value Reference Range Comments MAGNESIUM (BEAKER) (test eubz=078) 2.6 mg/dL 1.6-2.6 BASIC METABOLIC [id number] 04:08:00 Test Item Value Reference Range Comments SODIUM (BEAKER) (test 139 meq/L 136-145 bgbv=356) POTASSIUM (BEAKER) (test 4.1 meq/L 3.5-5.1 rjiw=625) CHLORIDE (BEAKER) (test 106 meq/L 98-107 rjwi=223) CO2 (BEAKER) (test 28 meq/L 22-29 uksg=750) BLOOD UREA NITROGEN 13 mg/dL 7-21 (BEAKER) (test pzqw=801) CREATININE (BEAKER) (test 0.86 mg/dL 0.57-1.25 rccq=849) GLUCOSE RANDOM (BEAKER) 82 mg/dL 70-105 (test qbnj=130) CALCIUM (BEAKER) (test 9.0 mg/dL 8.4-10.2 enkc=581) EGFR (BEAKER) (test 108 mL/min/1.73 sq m ESTIMATED GFR IS NOT adzf=1205) ACCURATE CREATININE CLEARANCE IN PREDICTING GLOMERULAR FILTRATION RATE. ESTIMATED GFR IS NOT APPLICABLE FOR DIALYSIS PATIENTS. RAD, CHEST, 1 VIEW, NON [id number] 04:00:00while patient is intubated or has chest tubes.Reason for exam:->s/p right lung resection and pleurectomy; evaluate for pneumothoraxShould this be performed at the bedside?->YesFINAL REPORT RAD, CHEST, 1 VIEW, NON DEPT INDICATION: s/p right lung resection and pleurectomy; evaluate for pneumothorax COMPARISON: Prior day's exam FINDINGS: Portable frontal view of the chest. IMPRESSION: Support Lines: Stable. Lungs and pleura: Unchanged airspace and pleural opacities. Trace right apical pneumothorax. Unchanged postsurgical changes in the right lung.Heart and mediastinum: Stable contours. Additional findings: None. Signed: Gaviota Whitaker Verified Date/Time: 02/21/2018 04:00 :09 Reading Location: [address] Transitional Reading Room CBC W/PLT COUNT & amp; AUTO [id number] 03:53:00 Test Item Value Reference Range Comments WHITE BLOOD CELL COUNT (BEAKER) (test jljd=220) 11.6 K/ L 3.5-10.5 RED BLOOD CELL COUNT (BEAKER) (test ubpp=378) 4.48 M/ L 4.63-6.08 HEMOGLOBIN (BEAKER) (test negw=079) 13.3 GM/DL 13.7-17.5 HEMATOCRIT (BEAKER) (test qjia=538) 40.0 % 40.1-51.0 MEAN CORPUSCULAR VOLUME (BEAKER) (test pprg=837) 89.3 fL 79.0-92.2 MEAN CORPUSCULAR HEMOGLOBIN (BEAKER) (test 29.7 pg 25.7-32.2 copc=423) MEAN CORPUSCULAR HEMOGLOBIN CONC (BEAKER) (test 33.3 GM/DL 32.3-36.5 htxz=578) RED CELL DISTRIBUTION WIDTH (BEAKER) (test 12.0 % 11.6-14.4 mxkz=327) PLATELET COUNT (BEAKER) (test bouc=189) 182 K/CU MM 150-450 MEAN PLATELET VOLUME (BEAKER) (test akdz=934) 8.7 fL 9.4-12.4 NUCLEATED RED BLOOD CELLS (BEAKER) (test 0 /100 WBC 0-0 xonw=748) NEUTROPHILS RELATIVE PERCENT (BEAKER) (test 79 % zdyl=939) LYMPHOCYTES RELATIVE PERCENT (BEAKER) (test 11 % zgbj=346) MONOCYTES RELATIVE PERCENT (BEAKER) (test 8 % pzug=639) EOSINOPHILS RELATIVE PERCENT (BEAKER) (test 1 % bzey=405) BASOPHILS RELATIVE PERCENT (BEAKER) (test 0 % rchi=320) NEUTROPHILS ABSOLUTE COUNT (BEAKER) (test 9.19 K/ L 1.78-5.38 ppvn=809) LYMPHOCYTES ABSOLUTE COUNT (BEAKER) (test 1.28 K/ L 1.32-3.57 gmgr=956) MONOCYTES ABSOLUTE COUNT (BEAKER) (test 0.98 K/ L 0.30-0.82 vssc=213) EOSINOPHILS ABSOLUTE COUNT (BEAKER) (test 0.09 K/ L 0.04-0.54 mzyn=239) BASOPHILS ABSOLUTE COUNT (BEAKER) (test 0.03 K/ L 0.01-0.08 fjvh=010) IMMATURE GRANULOCYTES-RELATIVE PERCENT (BEAKER) 0 % 0-1 (test dwrs=5926) [id number] 22:32:00 Test Item Value Reference Range Comments MAGNESIUM (BEAKER) (test zukx=569) 2.2 mg/dL 1.6-2.6 BASIC METABOLIC [id number] 22:32:00 Test Item Value Reference Range Comments SODIUM (BEAKER) (test 139 meq/L 136-145 pker=156) POTASSIUM (BEAKER) (test 4.0 meq/L 3.5-5.1 nxcq=300) CHLORIDE (BEAKER) (test 103 meq/L 98-107 sgts=222) CO2 (BEAKER) (test 28 meq/L 22-29 zrph=450) BLOOD UREA NITROGEN 13 mg/dL 7-21 (BEAKER) (test gaos=257) CREATININE (BEAKER) (test 1.01 mg/dL 0.57-1.25 cyrl=998) GLUCOSE RANDOM (BEAKER) 156 mg/dL 70-105 (test kosr=596) CALCIUM (BEAKER) (test 9.2 mg/dL 8.4-10.2 jchc=760) EGFR (BEAKER) (test 90 mL/min/1.73 sq m ESTIMATED GFR IS NOT ulno=3429) ACCURATE CREATININE CLEARANCE IN PREDICTING GLOMERULAR FILTRATION RATE. ESTIMATED GFR IS NOT APPLICABLE FOR DIALYSIS PATIENTS. CBC (HEMOGRAM ONLY)2018-02-20 22:26:00 Test Item Value Reference Range Comments WHITE BLOOD CELL COUNT (BEAKER) (test aqag=059) 17.4 K/ L 3.5-10.5 RED BLOOD CELL COUNT (BEAKER) (test cbcb=842) 4.91 M/ L 4.63-6.08 HEMOGLOBIN (BEAKER) (test nosu=233) 14.8 GM/DL 13.7-17.5 HEMATOCRIT (BEAKER) (test btcq=035) 43.9 % 40.1-51.0 MEAN CORPUSCULAR VOLUME (BEAKER) (test vhfl=691) 89.4 fL 79.0-92.2 MEAN CORPUSCULAR HEMOGLOBIN (BEAKER) (test 30.1 pg 25.7-32.2 snny=333) MEAN CORPUSCULAR HEMOGLOBIN CONC (BEAKER) (test 33.7 GM/DL 32.3-36.5 fwcw=489) RED CELL DISTRIBUTION WIDTH (BEAKER) (test 11.9 % 11.6-14.4 rrim=715) PLATELET COUNT (BEAKER) (test jylu=212) 202 K/CU MM 150-450 MEAN PLATELET VOLUME (BEAKER) (test nksq=231) 8.6 fL 9.4-12.4 RAD, CHEST, 1 VIEW, NON [id number] 21:44:00Reason for exam:->S/p right lung wedge resection and pleurectomy; evaluate for pneumothoraxShouldthis be performed at the bedside?->YesFINAL REPORT Comparison : 02/20/2018 at 3:13 AM TECHNIQUE: Single view the chest FINDINGS: Status post recent right lung surgery. Additional right-sided chest tube has been placed.There is small right apical pneumothorax. Lungs otherwise clear. Interval placement of an endotracheal tube. Tip projects 7.0 cm above the destinee. No other significant change Signed: Killian Camilo MDReport Verified Date/ Time: 02/20/2018 21:44:38 Reading Location: [facility] Reading Room SODIUM NA- STAT [id number] 19:27:00 Test Item Value Reference Range Comments SODIUM (BEAKER) (test tcas=346) 138 meq/L 135-148 POTASSIUM-STAT [id number] 19:27:00 Test Item Value Reference Range Comments POTASSIUM (BEAKER) (test yzia=501) 3.8 meq/L 3.6-5.5 HGB/HCT (H&H) - STAT [id number] 19:27:00 Test Item Value Reference Range Comments HEMOGLOBIN (BEAKER) (test avun=492) 15.1 g/dL 13.0-16.8 HEMATOCRIT (BEAKER) (test ltkp=260) 44.0 % 40.0-50.0 BLOOD GAS, [id number] 19:27:00 Test Item Value Reference Range Comments PH ARTERIAL (BEAKER) (test yusa=485) 7.45 7.35-7.45 PCO2 ARTERIAL (BEAKER) (test jycy=637) 38 mmHg 35-45 PO2 ARTERIAL (BEAKER) (test wxle=467) 298 mmHg 80-90 O2 SATURATION ARTERIAL (BEAKER) (test gzpf=330) 99.7 % 96.0-97.0 HCO3 ARTERIAL (BEAKER) (test iqdb=120) 26 mmol/L 21-29 BASE EXCESS ARTERIAL (BEAKER) (test ayzu=571) 1.1 mmol/L -2.0-3.0 PATIENT TEMPERATURE (BEAKER) (test xfwj=0583) 35.0 C FIO2 (BEAKER) (test acsu=7563) 100.0 % GLUCOSE-STAT [id number] 19:27:00 Test Item Value Reference Range Comments GLUCOSE RANDOM (BEAKER) (test ggei=620) 118 mg/dL 70-110 CALCIUM, [id number] 19:27:00 Test Item Value Reference Range Comments CALCIUM IONIZED (BEAKER) (test sflm=516) 1.18 mmol/L 1.12-1.27 PH, BLOOD (BEAKER) (test wqjh=5624) 7.45 [id number] 04:05:00 Test Item Value Reference Range Comments MAGNESIUM (BEAKER) (test trek=157) 2.4 mg/dL 1.6-2.6 BASIC METABOLIC [id number] 04:05:00 Test Item Value Reference Range Comments SODIUM (BEAKER) (test 142 meq/L 136-145 yzqz=993) POTASSIUM (BEAKER) (test 3.7 meq/L 3.5-5.1 vfti=702) CHLORIDE (BEAKER) (test 105 meq/L 98-107 pufk=097) CO2 (BEAKER) (test 29 meq/L 22-29 wfnk=430) BLOOD UREA NITROGEN 14 mg/dL 7-21 (BEAKER) (test drpo=028) CREATININE (BEAKER) (test 1.04 mg/dL 0.57-1.25 mqhw=080) GLUCOSE RANDOM (BEAKER) 91 mg/dL 70-105 (test frdh=402) CALCIUM (BEAKER) (test 9.5 mg/dL 8.4-10.2 sawq=927) EGFR (BEAKER) (test 87 mL/min/1.73 sq m ESTIMATED GFR IS NOT zurl=9009) ACCURATE CREATININE CLEARANCE IN PREDICTING GLOMERULAR FILTRATION RATE. ESTIMATED GFR IS NOT APPLICABLE FOR DIALYSIS PATIENTS. [id number] 03:52:00 Test Item Value Reference Range Comments PROTIME (BEAKER) (test cwey=978) 13.4 seconds 11.7-14.7 INR (BEAKER) (test fbig=500) 1.0 <=5.9 PARTIAL THROMBOPLASTIN TIME (BEAKER) (test 34.1 seconds 22.5-36.0 ysdg=819) RECOMMENDED COUMADIN/WARFARIN INR THERAPY RANGESSTANDARD DOSE: 2.0 - 3.0 Includes: PROPHYLAXIS forvenous thrombosis, systemic embolization; TREATMENT for venous thrombosis and/or pulmonary embolus.HIGH RISK: Target INR is 2.5-3.5 for patients with mechanical heart valves.RAD, CHEST, 1 VIEW, NON [id number] 03:42:00Reason for exam:->eval pneumothoraxShould this be performed at the bedside?->YesFINAL REPORT RAD, CHEST, 1 VIEW, NON DEPT INDICATION: eval pneumothorax COMPARISON: Prior day's exam FINDINGS: Portable frontal view of the chest. IMPRESSION: Support Lines: Stable. Lungs and pleura: Unchanged airspace and pleural opacities. No pneumothorax.Heart and mediastinum: Stable contours. Additional findings: None. Signed: Gaviota Whitaker Verified Date/Time: 02/20/2018 03:42:35 Reading Location: [address] Reading Room CBC W/PLT COUNT & AUTO [id number] 03:39:00 Test Item Value Reference Range Comments WHITE BLOOD CELL COUNT (BEAKER) (test pzmn=998) 5.3 K/ L 3.5-10.5 RED BLOOD CELL COUNT (BEAKER) (test ynrv=544) 4.64 M/ L 4.63-6.08 HEMOGLOBIN (BEAKER) (test tcer=252) 13.9 GM/DL 13.7-17.5 HEMATOCRIT (BEAKER) (test yvso=282) 41.6 % 40.1-51.0 MEAN CORPUSCULAR VOLUME (BEAKER) (test ekuv=514) 89.7 fL 79.0-92.2 MEAN CORPUSCULAR HEMOGLOBIN (BEAKER) (test 30.0 pg 25.7-32.2 qtjy=911) MEAN CORPUSCULAR HEMOGLOBIN CONC (BEAKER) (test 33.4 GM/DL 32.3-36.5 hclr=934) RED CELL DISTRIBUTION WIDTH (BEAKER) (test 12.0 % 11.6-14.4 grlv=229) PLATELET COUNT (BEAKER) (test yibe=474) 170 K/CU MM 150-450 MEAN PLATELET VOLUME (BEAKER) (test nhyc=914) 8.7 fL 9.4-12.4 NUCLEATED RED BLOOD CELLS (BEAKER) (test 0 /100 WBC 0-0 ohvc=172) NEUTROPHILS RELATIVE PERCENT (BEAKER) (test 45 % ybwx=939) LYMPHOCYTES RELATIVE PERCENT (BEAKER) (test 37 % yvas=807) MONOCYTES RELATIVE PERCENT (BEAKER) (test 11 % gnxk=642) EOSINOPHILS RELATIVE PERCENT (BEAKER) (test 7 % asdu=366) BASOPHILS RELATIVE PERCENT (BEAKER) (test 1 % esdd=316) NEUTROPHILS ABSOLUTE COUNT (BEAKER) (test 2.38 K/ L 1.78-5.38 cvuc=610) LYMPHOCYTES ABSOLUTE COUNT (BEAKER) (test 1.95 K/ L 1.32-3.57 dodu=465) MONOCYTES ABSOLUTE COUNT (BEAKER) (test 0.56 K/ L 0.30-0.82 ziuk=442) EOSINOPHILS ABSOLUTE COUNT (BEAKER) (test 0.37 K/ L 0.04-0.54 xdjy=065) BASOPHILS ABSOLUTE COUNT (BEAKER) (test 0.03 K/ L 0.01-0.08 xtcw=577) IMMATURE GRANULOCYTES-RELATIVE PERCENT (BEAKER) 0 % 0-1 (test gesm=8750) RAD, CHEST, 1 VIEW, NON [id number] 02:45:00Reason for exam:->eval pneumothoraxShould this be performed at the bedside?->YesFINAL REPORT CLINICAL INDICATION: Evaluate pneumothorax Comparison: 02/18/2018 The cardiomediastinal contours are stable. Curvilinear opacity in the right lower lung is similar to previous. No pneumothorax is definitely identified, though a visceral pleural line could be obscured by overlying rib. A right chest tube remains in place. Signed: Alex Wells MDReport Verified Date/Time: 02/19/2018 02:45:09 Reading Location: [address] Reading Room POCT-GLUCOSE [id number] 22:35:00 Test Item Value Reference Range Comments POC-GLUCOSE METER (BEAKER) 81 mg/dL 70-110 TESTED AT [address] (test gblx=1015) [facility] [id number] [id number] 07:20:00 Test Item Value Reference Range Comments MAGNESIUM (BEAKER) (test curx=238) 2.3 mg/dL 1.6-2.6 BASIC METABOLIC [id number] 07:20:00 Test Item Value Reference Range Comments SODIUM (BEAKER) (test 138 meq/L 136-145 eslg=898) POTASSIUM (BEAKER) (test 3.9 meq/L 3.5-5.1 edhl=240) CHLORIDE (BEAKER) (test 101 meq/L 98-107 oxeg=060) CO2 (BEAKER) (test 29 meq/L 22-29 guuy=836) BLOOD UREA NITROGEN 15 mg/dL 7-21 (BEAKER) (test mrua=442) CREATININE (BEAKER) (test 1.03 mg/dL 0.57-1.25 sxvf=761) GLUCOSE RANDOM (BEAKER) 80 mg/dL 70-105 (test wkqd=218) CALCIUM (BEAKER) (test 9.6 mg/dL 8.4-10.2 pyix=168) EGFR (BEAKER) (test 88 mL/min/1.73 sq m ESTIMATED GFR IS NOT rbjq=1554) ACCURATE CREATININE CLEARANCE IN PREDICTING GLOMERULAR FILTRATION RATE. ESTIMATED GFR IS NOT APPLICABLE FOR DIALYSIS PATIENTS. CBC W/PLT COUNT & AUTO [id number] 06:19:00 Test Item Value Reference Range Comments WHITE BLOOD CELL COUNT (BEAKER) (test wkqs=607) 7.0 K/ L 3.5-10.5 RED BLOOD CELL COUNT (BEAKER) (test jliz=557) 4.96 M/ L 4.63-6.08 HEMOGLOBIN (BEAKER) (test enxv=484) 14.8 GM/DL 13.7-17.5 HEMATOCRIT (BEAKER) (test eqjs=787) 44.8 % 40.1-51.0 MEAN CORPUSCULAR VOLUME (BEAKER) (test wajv=390) 90.3 fL 79.0-92.2 MEAN CORPUSCULAR HEMOGLOBIN (BEAKER) (test 29.8 pg 25.7-32.2 vhlw=965) MEAN CORPUSCULAR HEMOGLOBIN CONC (BEAKER) (test 33.0 GM/DL 32.3-36.5 jfgd=698) RED CELL DISTRIBUTION WIDTH (BEAKER) (test 12.0 % 11.6-14.4 hlpw=964) PLATELET COUNT (BEAKER) (test akqf=946) 187 K/CU MM 150-450 MEAN PLATELET VOLUME (BEAKER) (test iofq=869) 9.2 fL 9.4-12.4 NUCLEATED RED BLOOD CELLS (BEAKER) (test 0 /100 WBC 0-0 nlpb=911) NEUTROPHILS RELATIVE PERCENT (BEAKER) (test 53 % psrc=569) LYMPHOCYTES RELATIVE PERCENT (BEAKER) (test 29 % kvil=093) MONOCYTES RELATIVE PERCENT (BEAKER) (test 13 % xbcm=939) EOSINOPHILS RELATIVE PERCENT (BEAKER) (test 5 % phoq=679) BASOPHILS RELATIVE PERCENT (BEAKER) (test 1 % tqwf=927) NEUTROPHILS ABSOLUTE COUNT (BEAKER) (test 3.68 K/ L 1.78-5.38 iojs=152) LYMPHOCYTES ABSOLUTE COUNT (BEAKER) (test 2.01 K/ L 1.32-3.57 kjdy=143) MONOCYTES ABSOLUTE COUNT (BEAKER) (test 0.88 K/ L 0.30-0.82 ulzy=738) EOSINOPHILS ABSOLUTE COUNT (BEAKER) (test 0.37 K/ L 0.04-0.54 jhwu=875) BASOPHILS ABSOLUTE COUNT (BEAKER) (test 0.04 K/ L 0.01-0.08 obuu=895) IMMATURE GRANULOCYTES-RELATIVE PERCENT (BEAKER) 0 % 0-1 (test wjit=5501) RAD, CHEST, 1 VIEW, NON [id number] 04:26:00Reason for exam:->eval pneumothoraxShould this be performed at the bedside?->YesFINAL REPORT CLINICAL INDICATION: Evaluate pneumothorax Comparison: 02/17/2018 The cardiomediastinal contours are stable. Curvilinear opacity in the right lower lung suggests atelectasis or scarring. Curvilinear lucency at the right upper lung overlying the posterior right thirdrib could reflect artifact or a visceral pleural line of a small apical pneumothorax. Attention on follow- up. A right chest tube remains in place. Signed: Alex Wells MDReport Verified Date/Time: 02/18/2018 04:26:03 Reading Location: [address] Reading Room Electronically signed by: ALEX WELLS M.D. on 04:26 AMRAD, CHEST, 1 VIEW, NON [id number] 12:49:00Reason for exam: ->CT to water sealShould this be performed at the bedside?->YesFINAL REPORT Chest one view compared to February 17 Discussion: Patchy opacityis seen in the right lower lung. Right-sided chest tube is in place with a small lateral low chest pneumothorax unchanged. Signed: Roly Mosley Verified Date/Time: 02/17/2018 12:49:35 ReadingLocation: [facility] Reading Room Electronically signed by: ROLY MOSLEY M.D. on02/17/2018 12:49 [id number] 05:11:00 Test Item Value Reference Range Comments MAGNESIUM (BEAKER) (test qmsz=286) 2.4 mg/dL 1.6-2.6 COMPREHENSIVE METABOLIC [id number] 05:11:00 Test Item Value Reference Range Comments TOTAL PROTEIN (BEAKER) 7.0 gm/dL 6.0-8.3 (test abob=079) ALBUMIN (BEAKER) (test 4.4 g/dL 3.5-5.0 alnk=5830) ALKALINE PHOSPHATASE 58 U/L 40-150 (BEAKER) (test memw=536) BILIRUBIN TOTAL (BEAKER) 0.9 mg/dL 0.2-1.2 (test whbn=443) SODIUM (BEAKER) (test 136 meq/L 136-145 xjzg=640) POTASSIUM (BEAKER) (test 4.0 meq/L 3.5-5.1 eshr=000) CHLORIDE (BEAKER) (test 101 meq/L 98-107 isjc=768) CO2 (BEAKER) (test 28 meq/L 22-29 tbqq=924) BLOOD UREA NITROGEN 8 mg/dL 7-21 (BEAKER) (test yuwg=163) CREATININE (BEAKER) (test 0.99 mg/dL 0.57-1.25 tjzd=749) GLUCOSE RANDOM (BEAKER) 101 mg/dL 70-105 (test omxi=668) CALCIUM (BEAKER) (test 9.6 mg/dL 8.4-10.2 jnwr=754) AST (SGOT) (BEAKER) (test 16 U/L 5-34 muyu=924) ALT (SGPT) (BEAKER) (test 11 U/L 6-55 libk=629) EGFR (BEAKER) (test 92 mL/min/1.73 sq m ESTIMATED GFR IS NOT lntb=5240) ACCURATE CREATININE CLEARANCE IN PREDICTING GLOMERULAR FILTRATION RATE. ESTIMATED GFR IS NOT APPLICABLE FOR DIALYSIS PATIENTS. [id number] 04:43:00 Test Item Value Reference Range Comments PROTIME (BEAKER) (test rdif=314) 13.3 seconds 11.7-14.7 INR (BEAKER) (test xwgl=109) 1.0 <=5.9 PARTIAL THROMBOPLASTIN TIME (BEAKER) (test 28.7 seconds 22.5-36.0 colc=218) RECOMMENDED COUMADIN/WARFARIN INR THERAPY RANGESSTANDARD DOSE: 2.0 - 3.0 Includes: PROPHYLAXIS forvenous thrombosis, systemic embolization; TREATMENT for venous thrombosis and/or pulmonary embolus.HIGH RISK: Target INR is 2.5-3.5 for patients with mechanical heart valves.CBC W/PLT COUNT & AUTO [id number] 04:38:00 Test Item Value Reference Range Comments WHITE BLOOD CELL COUNT (BEAKER) (test fcmq=542) 11.5 K/ L 3.5-10.5 RED BLOOD CELL COUNT (BEAKER) (test kxje=909) 5.03 M/ L 4.63-6.08 HEMOGLOBIN (BEAKER) (test gvxh=176) 15.2 GM/DL 13.7-17.5 HEMATOCRIT (BEAKER) (test pzdw=547) 46.2 % 40.1-51.0 MEAN CORPUSCULAR VOLUME (BEAKER) (test qvfi=164) 91.8 fL 79.0-92.2 MEAN CORPUSCULAR HEMOGLOBIN (BEAKER) (test 30.2 pg 25.7-32.2 ubqm=057) MEAN CORPUSCULAR HEMOGLOBIN CONC (BEAKER) (test 32.9 GM/DL 32.3-36.5 pued=818) RED CELL DISTRIBUTION WIDTH (BEAKER) (test 12.2 % 11.6-14.4 ndeo=337) PLATELET COUNT (BEAKER) (test iikc=489) 192 K/CU MM 150-450 MEAN PLATELET VOLUME (BEAKER) (test rtgt=893) 9.1 fL 9.4-12.4 NUCLEATED RED BLOOD CELLS (BEAKER) (test 0 /100 WBC 0-0 lxby=880) NEUTROPHILS RELATIVE PERCENT (BEAKER) (test 78 % uasj=608) LYMPHOCYTES RELATIVE PERCENT (BEAKER) (test 12 % zdjb=015) MONOCYTES RELATIVE PERCENT (BEAKER) (test 7 % yxxx=048) EOSINOPHILS RELATIVE PERCENT (BEAKER) (test 2 % owev=379) BASOPHILS RELATIVE PERCENT (BEAKER) (test 0 % lcyc=339) NEUTROPHILS ABSOLUTE COUNT (BEAKER) (test 8.96 K/ L 1.78-5.38 vbjt=918) LYMPHOCYTES ABSOLUTE COUNT (BEAKER) (test 1.36 K/ L 1.32-3.57 htso=161) MONOCYTES ABSOLUTE COUNT (BEAKER) (test 0.84 K/ L 0.30-0.82 lepg=027) EOSINOPHILS ABSOLUTE COUNT (BEAKER) (test 0.19 K/ L 0.04-0.54 metv=667) BASOPHILS ABSOLUTE COUNT (BEAKER) (test 0.03 K/ L 0.01-0.08 zwfs=615) IMMATURE GRANULOCYTES-RELATIVE PERCENT (BEAKER) 1 % 0-1 (test yfya=5288) RAD, CHEST, 1 VIEW, NON [id number] 01:19:00Reason for exam:-> pneumothoraxFINAL REPORT RAD, CHEST, 1 VIEW, NON DEPT INDICATION: pneumothorax COMPARISON: None available FINDINGS: Portable frontal view of the chest. IMPRESSION: Support Lines: Right apical chest tube. Lungs and pleura: Discoid atelectasis in the right midlung. No large pleural effusion. No pneumothorax.Heart and mediastinum: Normal cardiac and mediastinal silhouette. Additional findings: None. Signed: Gaviota Whitaker MDReport Verified Date/Time: 02/17/2018 01:19:36 Reading Location: [facility] B1 C013T Transitional Reading Room
[2018-04-10] MEDS ORDERED: HYDROCODONE/APAP 7.5/325 MG TAB ONE (19:53)
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
[2018-04-10] MEDS ORDERED: TETANUS & DIPHTHERIA TOX,ADULT 0.5 ML VIAL ONE (20:43)
== END 2018-04-10 21:12 | disposition home or self-care (01) ==
LOC: ER 19:21
DX: S42.002A Fracture of unspecified part of left clavicle, initial encounter for closed fracture (principal); V86.95XA Unspecified occupant of 3- or 4- wheeled all-terrain vehicle (ATV) injured in nontraffic accident, initial encounter; S16.1XXA Strain of muscle, fascia and tendon at neck level, initial encounter; Z23 Encounter for immunization
CPT/HCPCS: 71250; 72125; 90714; 99284